=== PATIENT | male | born 1935 | race Caucasian/White ===

== ENCOUNTER 2018-11-08 13:47 | Emergency (ER) | payer MEDICARE, OTHER ==
--- NOTE | 2018-11-08 14:24 | ERPHSYRPT ---
- History of Present Illness Time Seen by Provider: 11/08/18 14:11 Source: patient, family Exam Limitations: other (patient with problems with his memory) Patient Subjective Stated Complaint: PT states "He fell walking from the mailbox to the house yesterday and he has trouble with his short term memory but it is really bad today. It is getting worse." Triage Nursing Assessment: Pt presented alert and oriented X 3, ski pwd. Pt has several skin tears and wounds on head, knees left elbow. PT repeating questions a couple of times. Physician History: 82-year-old white male with history of cataracts, congestive heart failure, anemia, high blood pressure, COPD who is on [place]. He is brought by his with complaint that the patient had an accidental fall yesterday landing on his face he has bruising to his left for head and left zygomatic area he has abrasions to bilateral knee and left elbow. Patient is oriented to person and place however he states it is year 1999 he is oriented to October. He has to look at his for answers to many questions and he is having many memory problems his states that he has chronic memory problems and this is markedly worse. He is moving all extremities he has no facial droop he has good planned giving officer bilaterally 5 over 5 normal finger to nose no pronator drift he can move all extremities. Past medical history includes cataracts, congestive heart failure, hyperlipidemia, high blood pressure, COPD. Past surgical history includes cardiac catheter, cardiac stent, cataracts. Social history patient denies tobacco alcohol or illicit drug use. Timing/Duration: yesterday Severity: moderate Modifying Factors: Improves With: nothing Associated Symptoms: other (Fell yesterday hit his head and face trouble with his memory slight neck pain), No nausea, No vomiting, No abdominal pain, No shortness of breath, No heartburn, No diaphoresis, No cough, No chills, No chest pain, No fever, No headaches, No loss of appetite, No malaise, No rash, No syncope, No seizure, No weakness Allergies/Adverse Reactions: rosuvastatin calcium [From Crestor] Allergy (Verified 02/10/15 21:55) Home Medications: Allopurinol 300 mg [Zyloprim 300 mg] 300 mg PO DAILY 11/08/18 [History] Amiodarone HCl 200 mg [Cordarone 200 MG] 200 mg PO DAILY 11/08/18 [History ] Apixaban [Eliquis] 5 mg PO DAILY 11/08/18 [History] Atorvastatin Calcium 40 mg PO DAILY 11/08/18 [History] Carvedilol 25 mg PO DAILY 11/08/18 [History] Furosemide 20 mg [Lasix 20 mg] 20 mg PO DAILY 11/08/18 [History] Levothyroxine Sodium [Synthroid] 75 mcg PO DAILY 11/08/18 [History] Sacubitril/Valsartan [Entresto 97 mg-103 mg Tablet] 1 tab PO DAILY 11/08/18 [ History] Spironolactone 25 mg PO DAILY 11/08/18 [History] Hx Tetanus, Diphtheria Vaccination/Date Given: Yes Hx Influenza Vaccination/Date Given: Yes Hx Pneumococcal Vaccination/Date Given: Yes Immunizations Up to Date: Yes - Review of Systems Constitutional: Other (Bruising left infraorbital area and for head fell yesterday), No Fever, No Chills Eyes: No Symptoms Ears, Nose, & Throat: No Symptoms Respiratory: No Cough, No Dyspnea Cardiac: No Chest Pain, No Edema, No Syncope Abdominal/Gastrointestinal: No Abdominal Pain, No Nausea, No Vomiting, No Diarrhea Genitourinary Symptoms: No Dysuria Musculoskeletal: Neck Pain (slight neck pain), Fall, Injury (bruising left for head and zygomatic area), No Arthralgias, No Back Pain, No Deformity Skin: No Rash Neurological: Other (problem with memory), No Dizziness, No Focal Weakness, No Gait Changes, No Headache, No Irritability, No Lethargy, No Paralysis, No Parasthesia, No Seizure, No Sensory Changes, No Speech Changes, No Tics, No Tremors, No Vertigo Psychological: No Symptoms Endocrine: No Symptoms All Other Systems: Reviewed and Negative - Past Medical History Pertinent Past Medical History: Yes Neurological History: No Pertinent History ENT History: Cataracts Cardiac History: Congestive Heart Failure, High Cholesterol, Hypertension Respiratory History: CHF, COPD Endocrine Medical History: Hypoglycemia Musculoskeletal History: Arthritis GI Medical History: No Pertinent History History: Renal Disease Psycho-Social History: No Pertinent History Male Reproductive Disorders: No Pertinent History - Past Surgical History Past Surgical History: Yes Cardiac: CABG, Cardiac Catheterization, Cardiac Stent Other Surgical History: cataracts - Social History Smoking Status: Former smoker Exposure to second hand smoke: No Drug Use: none Patient Lives Alone: No - Nursing Vital Signs Nursing Vital Signs: Initial Vital Signs Temperature 98.1 F 11/08/18 13:59 Pulse Rate 83 11/08/18 13:59 Respiratory Rate 16 11/08/18 13:59 Blood Pressure 134/71 11/08/18 13:59 O2 Sat by Pulse Oximetry 98 11/08/18 13:59 Pain Scale Pain Intensity 0 - Physical Exam General Appearance: alert, other (wwell-developed white male pleasant and cooperative to examination oriented to himself [facility] 2001, bruising left for head left zygomatic area) Eye Exam: PERRL/EOMI, eyes nml inspection Ears, Nose, Throat Exam: normal ENT inspection, TMs normal, pharynx normal, moist mucous membranes Neck Exam: normal inspection, non-tender, supple, full range of motion Respiratory Exam: normal breath sounds, lungs clear, No respiratory distress Cardiovascular Exam: regular rate/rhythm, normal heart sounds, normal peripheral pulses, capillary refill <2 sec Gastrointestinal/Abdomen Exam: soft, normal bowel sounds, No tenderness, No mass Back Exam: normal inspection, normal range of motion, No CVA tenderness, No vertebral tenderness Extremity Exam: normal range of motion, pelvis stable, other (aabrasions bilateral knees left elbow) Neurologic Exam: alert, cooperative, residential building inspector II-XII nml as tested, sensation nml, other (planned giving officer equal 5 over 5,normal finger to nose,no pronator drift, oriented to person and place speech normal no facial droop), No oriented x 3 (oriented to person, place, November of 1999), No motor deficits Skin Exam: other (bruising left fore head, left zygomatic area, abrasions bilateral knees left elbow) SpO2 Interpretation: normal (98%) SpO2: 98 - Course Nursing assessment & vital signs reviewed: Yes EKG Interpreted by Me: RATE (63 bpm), Other (EKG: Paced rhythm 63 beats per) - CT Exams Head CT Interpretation: Tele-radiologist Report (head CT: Impression 1. Intraventricular acute hemorrhage affecting the superior aspect of the third ventricle. 2. Age related chronic microvascular ischemic and involutional changes.) Cervical Spine CT Interpretation: Tele-radiologist Report (CT cervical spine, impression: 1. No acute evidence of acute fracture. 2. Extensive multievel ddegenerative changes. 3. Findings suspicious for about 1 cm in diameter left thyroid nodule. Further characterization with ultrasound is recommended. 4. Atherosclerotic disease of the aorta, carotids, and vertebral arteries.) Maxillofacial Bones CT Interpretation: Tele-radiologist Report (CT maxillofacial bones: impression 1. No acute bony aabnormalities 2. Hyperdense material, identified in the superior aspect of the third ventricle is compatible with intr which is better charactized with the dictated head CTperformed concurrently. Partially seen upper cervical spine degenerative changes.) Ordered Tests: Active Orders 24 hr Category Date Time Status EKG-ER Only STAT Care 11/08/18 14:18 Active IV Insertion STAT Care 11/08/18 14:17 Active CERVICAL SPINE WO CONTRAST [CT] Stat Exams 11/08/18 14:17 Taken FACIAL BONES WO CONTRAST [CT] Stat Exams 11/08/18 14:17 Taken HEAD WITHOUT CONTRAST [CT] Stat Exams 11/08/18 14:17 Taken CBC W DIFF Stat Lab 11/08/18 14:25 Completed CMP Stat Lab 11/08/18 14:25 Completed PROTIME WITH INR Stat Lab 11/08/18 14:25 Completed PTT Stat Lab 11/08/18 14:25 Completed TROPONIN Q3H Lab 11/08/18 14:25 Completed UA W/RFX UR CULTURE Stat Lab 11/08/18 15:35 Completed Lab/Rad Data: Laboratory Result Diagrams 11/08/18 14:25 11/08/18 14:25 Laboratory Results 11/08/18 11/08/18 11/08/18 Range/Units 15:35 14:25 14:25 WBC (4.0-10.5) K/mm3 RBC (4.1-5.6) M/mm3 Hgb (12.5-18.0) gm/dl Hct (42-50) % MCV (78-100) fl MCH (26-32) pg MCHC (32-36) g/dl RDW (11.5-14.0) % Plt Count (150-450) K/mm3 MPV (6-9.5) fl Gran % (36.0-66.0) % Eos # (Auto) (0-0.5) Absolute Lymphs (auto) (1.0-4.6) Absolute Monos (auto) (0.0-1.3) Lymphocytes % (24.0-44.0) % Monocytes % (0.0-12.0) % Eosinophils % (0.00-5.0) % Basophils % (0.0-0.4) % Absolute Granulocytes (1.4-6.9) Basophils # (0-0.4) PT 19.1 H (8.83-12.87) SECONDS INR 1.63 (0.8-3.0) APTT 31.5 (24.1-36.1) SECONDS Sodium (137-145) mmol/L Potassium (3.5-5.1) mmol/L Chloride (98-107) mmol/L Carbon Dioxide (22-30) mmol/L Anion Gap (5-15) MEQ/L BUN (9-20) mg/dL Creatinine (0.66-1.25) mg/dL Estimated GFR ML/MIN Glucose (74-106) mg/dL Calcium (8.4-10.2) mg/dL Total Bilirubin (0.2-1.3) mg/dL AST (17-59) U/L ALT (0-50) U/L Alkaline Phosphatase (38-126) U/L Troponin I 0.038 H* (0.000-0.034) ng/mL Serum Total Protein (6.3-8.2) g/dL Albumin (3.5-5.0) g/dL Urine Color YELLOW (YELLOW) Urine Appearance CLEAR (CLEAR) Urine pH 6.0 (5-6) Ur Specific [place]lin 1.010 (1.005-1.025) Urine Protein NEGATIVE (Negative) Urine Ketones NEGATIVE (NEGATIVE) Urine Blood NEGATIVE (0-5) Juan Luis/ul Urine Nitrite NEGATIVE (NEGATIVE) Urine Bilirubin NEGATIVE (NEGATIVE) Urine Urobilinogen NEGATIVE (0-1) mg/dL Ur Leukocyte Esterase NEGATIVE (NEGATIVE) Urine WBC (Auto) 0-2 (0-5) /HPF Urine RBC (Auto) NONE (0-2) /HPF U Epithel Cells (Auto) NONE (FEW) /HPF Urine Bacteria (Auto) NONE (NEGATIVE) /HPF Unidentified Crystals 2-5 (NEGATIVE) /HPF Urine Culture Reflexed NO (NO) Urine Glucose NEGATIVE (NEGATIVE) mg/dL 11/08/18 11/08/18 Range/Units 14:25 14:25 WBC 6.5 (4.0-10.5) K/mm3 RBC 3.41 L (4.1-5.6) M/mm3 Hgb 11.5 L (12.5-18.0) gm/dl Hct 34.9 L (42-50) % MCV 102.3 H (78-100) fl MCH 33.7 H (26-32) pg MCHC 33.0 (32-36) g/dl RDW 14.1 H (11.5-14.0) % Plt Count 164 (150-450) K/mm3 MPV 9.9 H (6-9.5) fl Gran % 74.2 H (36.0-66.0) % Eos # (Auto) 0.23 (0-0.5) Absolute Lymphs (auto) 0.75 L (1.0-4.6) Absolute Monos (auto) 0.66 (0.0-1.3) Lymphocytes % 11.5 L (24.0-44.0) % Monocytes % 10.2 (0.0-12.0) % Eosinophils % 3.5 (0.00-5.0) % Basophils % 0.6 (0.0-0.4) % Absolute Granulocytes 4.82 (1.4-6.9) Basophils # 0.04 (0-0.4) PT (8.83-12.87) SECONDS INR (0.8-3.0) APTT (24.1-36.1) SECONDS Sodium 137 (137-145) mmol/L Potassium 4.6 (3.5-5.1) mmol/L Chloride 104 (98-107) mmol/L Carbon Dioxide 24 (22-30) mmol/L Anion Gap 14.2 (5-15) MEQ/L BUN 38 H (9-20) mg/dL Creatinine 1.65 H (0.66-1.25) mg/dL Estimated GFR 42.5 ML/MIN Glucose 108 H (74-106) mg/dL Calcium 9.1 (8.4-10.2) mg/dL Total Bilirubin 0.90 (0.2-1.3) mg/dL AST 91 H (17-59) U/L ALT 95 H (0-50) U/L Alkaline Phosphatase 100 (38-126) U/L Troponin I (0.000-0.034) ng/mL Serum Total Protein 6.6 (6.3-8.2) g/dL Albumin 3.9 (3.5-5.0) g/dL Urine Color (YELLOW) Urine Appearance (CLEAR) Urine pH (5-6) Ur Specific [place] (1.005-1.025) Urine Protein (Negative) Urine Ketones (NEGATIVE) Urine Blood (0-5) Juan Luis/ul Urine Nitrite (NEGATIVE) Urine Bilirubin (NEGATIVE) Urine Urobilinogen (0-1) mg/dL Ur Leukocyte Esterase (NEGATIVE) Urine WBC (Auto) (0-5) /HPF Urine RBC (Auto) (0-2) /HPF U Epithel Cells (Auto) (FEW) /HPF Urine Bacteria (Auto) (NEGATIVE) /HPF Unidentified Crystals (NEGATIVE) /HPF Urine Culture Reflexed (NO) Urine Glucose (NEGATIVE) mg/dL - Progress Progress: unchanged Progress Note: 11/08/18 14:25 This is a 82-year-old white male who has some memory problems and has a history of cataracts, congestive heart failure, hyperlipidemia, COPD. Patient is brought by his with complaint that he fell yesterday striking his face while walking down the driveway. states that patient always has some memory problems however patient is much worse today. On arrival patient is alert he needs to look to his for answers to many questions. He is oriented to person place and the year 1999. He has full range of motion to all extremities he has normal finger to nose planned giving officer are equal 5 over 5 sensation is intact to all extremities speech is normal there is no pronator drift. He does state that he has some slight neck pain. He does have a moderate amount of ecchymoses in the left frontal area and the left zygomatic area. He also has abrasions to his bilateral knees and left elbow. Will go ahead and obtain CT head facial bones neck. Will obtain CBC CMP UA. EKG troponin. Impression 1 accidental fall. 2 head contusion. 3 facial contusion. 4. mental status change 11/08/18 16:[address] Paris at [facility] ER through [facility] one call serviv I've discussed the patient's case with Dr. Paris she is accepted the patient for transfer to [facility]. Patient had initially been started on normal saline at 100 mL per hour this has been turned down to just to keep open he is stable at this time and conversant and in no acute distress. Will transfer to [facility] Impression: 1. Intracranial bleed to accidental fall 3 head contusion 4 facial contusion 5 mental status change - Departure Departure Disposition: Transfer ([facility]) Clinical Impression: Intracranial bleed Accidental fall Qualifiers: Encounter type: initial encounter Qualified Code(s): W19.XXXA - Unspecified fall, initial encounter Head contusion Qualifiers: Encounter type: initial encounter Contusion of head detail: unspecified part of head Qualified Code(s): S00.93XA - Contusion of unspecified part of head, initial encounter Facial contusion Qualifiers: Encounter type: initial encounter Qualified Code(s): S00.83XA - Contusion of other part of head, initial encounter Change in mental status Qualifiers: Altered mental status type: unspecified Qualified Code(s): R41.82 - Altered mental status, unspecified Condition: Fair Critical Care Time: No Referrals: [facility] RN [Primary Care Provider] -
[2018-11-08 14:37] LABS: BASOPHIL % 0.6 % (0.0-0.4); Basophil (Absolute #) 0.04 (0-0.4); Eosinophil % 3.5 % (0.00-5.0); Eosinophil (Absolute #) 0.23 (0-0.5); Granulocyte Absolute (ANC) 4.82 (1.4-6.9); Granulocytes % 74.2 % (36.0-66.0); Hematocrit 34.9 % (42-50); Hemoglobin 11.5 gm/dl (12.5-18.0); Lymphocyte (Absolute #) 0.75 (1.0-4.6); Lymphocytes % 11.5 % (24.0-44.0); Mean Cell Volume 102.3 fl (78-100); Mean Corpuscular Hemoglobin 33.7 pg (26-32); Mean Platelet Volume 9.9 fl (6-9.5); Monocyte (Absolute #) 0.66 (0.0-1.3); Monocytes % 10.2 % (0.0-12.0); Platelet Count 164 K/mm3 (150-450); Red Blood Count 3.41 M/mm3 (4.1-5.6); Red Cell Distribution Width 14.1 % (11.5-14.0); White Blood Count 6.5 K/mm3 (4.0-10.5)
[2018-11-08 14:44] LABS: INR 1.63 (0.8-3.0); PROTIME 19.1 SECONDS (8.83-12.87)
[2018-11-08 14:46] LABS: PTT 31.5 SECONDS (24.1-36.1)
[2018-11-08 14:49] LABS: ALBUMIN 3.9 g/dL (3.5-5.0); ANION GAP 14.2 MEQ/L (5-15); BILIRUBIN,TOTAL 0.9 mg/dL (0.2-1.3); Calcium 9.1 mg/dL (8.4-10.2); Creatinine 1 1.65 mg/dL (0.66-1.25); Potassium 4.6 mmol/L (3.5-5.1); Total Protein 6.6 g/dL (6.3-8.2)
[2018-11-08 15:09] VITALS: PULSE 60
[2018-11-08 15:46] LABS: Appearance CLEAR (CLEAR); Bilirubin NEGATIVE (NEGATIVE); Blood NEGATIVE Ery/ul (0-5); Glucose NEGATIVE (NEGATIVE); Ketones NEGATIVE (NEGATIVE); Leukocyte Esterase NEGATIVE (NEGATIVE); Nitrite NEGATIVE (NEGATIVE); Protein,Urine Dip NEGATIVE (Negative); Urobilinogen NEGATIVE mg/dL (0-1); WBC 0-2 /HPF (0-5)
[2018-11-08 16:13] VITALS: O2SAT 98
[2018-11-08 16:19] VITALS: BP 145/77
--- NOTE | 2018-11-08 21:32 | XRAY ---
Indication: Head and facial injury following fall. Memory loss. Multiple contiguous axial images obtained through the facial bones. Sagittal and coronal reformatted images obtained. Comparison: None A few bilateral dental amalgams produces beam artifact. Age-related osteopenia. No acute fracture or suspicious bone lesions. Orbits including roof, escobedo, and floors are intact. Paranasal sinuses and nasal passages are clear. Mild nasal septal deviation to the left. Visualized noncontrasted soft tissues unremarkable. CT head and CT cervical spine reported separately. Impression: Osteopenia and nasal septal deviation. Negative acute fracture. Comment: Preliminary interpretation was made by [facility]. No critical discrepancy. CTDI 59.47
--- NOTE | 2018-11-08 21:35 | XRAY ---
Indication: Head and facial injury following fall. Memory loss. Multiple contiguous axial images obtained through the head without contrast. Comparison: None Age-appropriate global atrophy and mild periventricular degenerative micro-ischemia bilaterally. Posterior fossa demonstrates Dandy-Walker spectrum. 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 No acute intracranial hemorrhage, hydrocephalus, or mass effect. Bony calvarium intact. Visualized paranasal sinuses and mastoid air cells are clear. Impression: 1. No acute intracranial abnormalities. 2. Normal aging brain including atrophy and degenerative micro-ischemia. 3. 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 Comment: Preliminary interpretation was made by [facility] who reports 1.7 x 1.1 cm acute hemorrhage in the third ventricle which I believe is a dense colloid cyst. Dandy-Walker spectrum also not reported.
--- NOTE | 2018-11-08 21:39 | XRAY ---
Indication: Head and facial injury following fall. Memory loss. Multiple contiguous axial images obtained through the cervical spine. Sagittal and coronal reformatted images obtained. Comparison: None Age-related osteopenia. Axial images negative for acute fracture, suspicious bony lesions, or spinal canal stenosis. Mild/moderate multilevel degenerative endplate spurring and moderate atlantoaxial degenerative arthropathy. Also mild multilevel bilateral degenerative facet hypertrophy. Sagittal and coronal reformatted images demonstrates cervical lordotic reversal centered at C4. Also multilevel degenerative disc space loss. No acute compression fracture, subluxation, or jumped facet. Normal appearing craniocervical junction. Visualized noncontrasted soft tissues demonstrates scattered vascular calcifications including heavy left and minimal right carotid calcifications. A few right neck surgical clips presumed from carotid endarterectomy and partially visualized right pacer lead. Lung apices unremarkable. CT head and CT facial bones reported separately. Impression: 1. Cervical lordotic reversal, positional versus paraspinal spasm. Negative acute fracture/subluxation. 2. Multilevel degenerative changes and scattered vascular calcifications. Comment: Preliminary interpretation was made by [facility]. No critical discrepancy. CTDI 58.25
== END 2018-11-08 16:44 | disposition short-term general hospital (02) ==
LOC: ED 13:47
DX: S00.93XA Contusion of unspecified part of head, initial encounter (principal); S00.83XA Contusion of other part of head, initial encounter; R41.82 Altered mental status, unspecified; W18.39XA Other fall on same level, initial encounter; I50.9 Heart failure, unspecified; D64.9 Anemia, unspecified; I10 Essential (primary) hypertension; J44.9 Chronic obstructive pulmonary disease, unspecified; Z79.899 Other long term (current) drug therapy; S80.212A Abrasion, left knee, initial encounter; S80.211A Abrasion, right knee, initial encounter; S50.312A Abrasion of left elbow, initial encounter
CPT/HCPCS: 36000; 36415; 70450; 70486; 72125; 80053; 81001; 84484; 85025; 85610; 85730; 93005; 99285

== ENCOUNTER 2020-06-25 12:05 | Emergency (ER) | payer MEDICARE, OTHER ==
[2020-06-25] MEDS ORDERED: Sodium Chloride 0.9% 1000 ML 1,000 ML IV STA (12:22)
[2020-06-25] MEDS ORDERED: Sodium Chloride 0.9% 1000 ML 1,000 ML ONE (12:35)
--- NOTE | 2020-06-25 12:40 | ERPHSYRPT ---
- History of Present Illness Time Seen by Provider: 06/25/20 12:30 Historian: patient, family Exam Limitations: other (Hard of hearing) Patient Subjective Stated Complaint: lower abd pain and hematuria Triage Nursing Assessment: pt to ED c.o lower abd pain x 4 days. denies NVD. last BM today that was normal per pt . pt COWLITZ and somewhat poor historian. last PO was breakfast this morning with no difficulties. pts reports he has had some blood in his urine x 4 days as well. denies hx kidney stones or renal disease. Physician History: -year-old male who presents with a 4-day history of generalized abdominal pain and hematuria. The pain is worse in the suprapubic area started 4 days ago denies any nausea vomiting or diarrhea he denies any fever chills or sweats. Timing/Duration: day(s) (4) Activities at Onset: none Quality: cramping Abdominal Pain Onset Location: suprapubic, generalized abdomen Pain Radiation: LLQ, flank Severity of Pain-Max: moderate Severity of Pain-Current: moderate Modifying Factors: Improves With: nothing Allergies/Adverse Reactions: rosuvastatin calcium [From Crestor] Allergy (Verified 06/25/20 12:32) legs weak, couldn't ambulate Home Medications: Allopurinol 300 mg [Zyloprim 300 mg] 150 mg PO DAILY 11/08/18 [History] Apixaban [Eliquis] 5 mg PO DAILY 11/08/18 [History] Atorvastatin Calcium 40 mg PO DAILY 11/08/18 [History] Furosemide 20 mg [Lasix 20 mg] 20 mg PO DAILY 11/08/18 [History] Levothyroxine Sodium [Synthroid] 75 mcg PO DAILY 11/08/18 [History] Sacubitril/Valsartan [Entresto 97 mg-103 mg Tablet] 1 tab PO BID 11/08/18 [History] Spironolactone 25 mg PO DAILY 11/08/18 [History] carvediloL [Carvedilol] 25 mg PO DAILY 11/08/18 [History] Fluticasone Propionate [Flonase NASAL] 16 gm NS UD 01/04/20 [History] Folic Acid 1 mg [Folate 1 mg] 1 mg PO DAILY 01/04/20 [History] Iron 65 mg PO DAILY 01/04/20 [History] Magnesium Oxide 400 mg [Mag-Ox 400] 400 mg PO DAILY 01/04/20 [History] Multivitamin [Multivitamins] 1 each PO DAILY 01/04/20 [History] Nitroglycerin 0.4 mg SL UD 01/04/20 [History] Vit A/C/E/Zinc/Selenium/Copper [Vision Formula Tablet] 1 each PO DAILY 01/04/20 [History] Hx Tetanus, Diphtheria Vaccination/Date Given: Yes Hx Influenza Vaccination/Date Given: Yes Hx Pneumococcal Vaccination/Date Given: Yes Immunizations Up to Date: Yes Travel Risk - International Travel Have you traveled outside of the country in past 3 weeks: No - Coronavirus Screening Are you exhibiting any of the following symptoms?: No Close contact with a COVID-19 positive Pt in past 14-21 Days: No - Review of Systems Constitutional: No Fever, No Chills Eyes: No Symptoms Ears, Nose, & Throat: No Symptoms Respiratory: No Cough, No Dyspnea Cardiac: No Chest Pain, No Edema, No Syncope Abdominal/Gastrointestinal: No Abdominal Pain, No Nausea, No Vomiting, No Diarrhea Genitourinary Symptoms: Dysuria, Frequency, Hematuria, Urgency Musculoskeletal: No Back Pain, No Neck Pain Skin: No Rash Neurological: No Dizziness, No Focal Weakness, No Sensory Changes Psychological: No Symptoms Endocrine: No Symptoms All Other Systems: Reviewed and Negative - Past Medical History Pertinent Past Medical History: Yes Neurological History: No Pertinent History ENT History: Cataracts Cardiac History: Congestive Heart Failure, High Cholesterol, Hypertension Respiratory History: CHF, COPD Endocrine Medical History: Hypoglycemia Musculoskeletal History: Arthritis GI Medical History: No Pertinent History History: Renal Disease Psycho-Social History: No Pertinent History Male Reproductive Disorders: No Pertinent History - Past Surgical History Past Surgical History: Yes Neuro Surgical History: No Pertinent History Cardiac: CABG, Cardiac Catheterization, Cardiac Stent Respiratory: No Pertinent History Gastrointestinal: Hernia Repair Genitourinary: No Pertinent History Musculoskeletal: No Pertinent History Male Surgical History: No Pertinent History Other Surgical History: cataracts,QUAD BIPASS, hernior. x three - Social History Smoking Status: Former smoker Exposure to second hand smoke: No Drug Use: none Patient Lives Alone: No - Nursing Vital Signs Nursing Vital Signs: Initial Vital Signs Temperature 97.6 F 06/25/20 12:23 Pulse Rate 62 06/25/20 12:23 Respiratory Rate 12 06/25/20 12:23 Blood Pressure 150/71 06/25/20 12:23 O2 Sat by Pulse Oximetry 96 06/25/20 12:23 Pain Scale Pain Intensity 4 - Physical Exam General Appearance: mild distress, alert Eye Exam: PERRL/EOMI, eyes nml inspection Ears, Nose, Throat Exam: normal ENT inspection, pharynx normal, moist mucous membranes Neck Exam: normal inspection, non-tender, supple, full range of motion Respiratory Exam: normal breath sounds, lungs clear, No respiratory distress Cardiovascular Exam: regular rate/rhythm, normal heart sounds Gastrointestinal/Abdomen Exam: soft, No tenderness, No mass Back Exam: normal inspection, normal range of motion, No CVA tenderness, No vertebral tenderness Extremity Exam: normal inspection, normal range of motion, pelvis stable Neurologic Exam: alert, oriented x 3, cooperative, normal mood/affect, nml cerebellar function, sensation nml, No motor deficits Skin Exam: normal color, warm, dry SpO2 Interpretation: normal SpO2: 96 O2 Delivery: Room Air - Course Nursing assessment & vital signs reviewed: Yes EKG Interpreted by Me: RATE (6 1 junctional rhthym), NORMAL AXIS, LAFB, Right Bundle Branch Block - CT Exams Abdomen/Pelvis CT Interpretation: Tele-radiologist Report Ordered Tests: Active Orders 24 hr Category Date Time Status EKG-ER Only STAT Care 06/25/20 12:22 Active IV Insertion STAT Care 06/25/20 12:22 Active ABDOMEN AND PELVIS W/0 CONTRAS [CT] Routine Exams 06/25/20 14:23 Taken AMYLASE Stat Lab 06/25/20 12:30 Completed CBC W DIFF Stat Lab 06/25/20 12:30 Completed CMP Stat Lab 06/25/20 12:30 Completed CULTURE,URINE Stat Lab 06/25/20 12:44 Received LIPASE Stat Lab 06/25/20 12:30 Completed Lactic Acid Stat Lab 06/25/20 12:22 Completed PROTIME WITH INR Stat Lab 06/25/20 12:30 Completed TROPONIN Q3H Lab 06/25/20 12:30 Completed TROPONIN Q3H Lab 06/25/20 15:25 Received TROPONIN Q3H Lab 06/25/20 18:30 Ordered TROPONIN Q3H Lab 06/25/20 21:30 Ordered TROPONIN Q3H Lab 06/26/20 00:30 Ordered UA W/RFX UR CULTURE Stat Lab 06/25/20 12:44 Completed Medication Summary Discontinued Medications Generic Name Dose Route Start Last Admin Trade Name Brent PRN Reason Stop Dose Admin Sodium Chloride 1,000 mls @ 999 mls/hr 06/25/20 12:22 06/25/20 13:45 Sodium Chloride 0.9% 1000 Ml IV 06/25/20 13:22 Infused .Q1H1M STA Infusion Sodium Chloride Confirm 06/25/20 12:35 Sodium Chloride 0.9% 1000 Ml Administered 06/25/20 12:36 Dose 1,000 mls @ ud .ROUTE .STK-MED ONE Ceftriaxone Sodium/Dextrose 1 g in 50 mls @ 100 mls/hr 06/25/20 14:57 06/25/20 15:07 Rocephin 1 Gm-D5w 50 Ml Bag IV 06/25/20 15:26 100 ml/hr STAT STA 100 mls/hr Administration Ceftriaxone Sodium/Dextrose Confirm 06/25/20 15:05 Rocephin 1 Gm-D5w 50 Ml Bag Administered 06/25/20 15:06 Dose 1 g in 50 mls @ ud IV .STK-MED ONE Lab/Rad Data: Laboratory Result Diagrams 06/25/20 12:30 06/25/20 12:30 Laboratory Results 06/25/20 06/25/20 06/25/20 Range/Units 12:44 12:30 12:30 WBC (4.0-10.5) K/mm3 RBC (4.1-5.6) M/mm3 Hgb (12.5-18.0) gm/dl Hct (42-50) % MCV (78-100) fl MCH (26-32) pg MCHC (32-36) g/dl RDW (11.5-14.0) % Plt Count (150-450) K/mm3 MPV (7.5-11.0) fl Gran % (36.0-66.0) % Eos # (Auto) (0-0.5) Absolute Lymphs (auto) (1.0-4.6) Absolute Monos (auto) (0.0-1.3) Lymphocytes % (24.0-44.0) % Monocytes % (0.0-12.0) % Eosinophils % (0.00-5.0) % Basophils % (0.0-0.4) % Absolute Granulocytes (1.4-6.9) Basophils # (0-0.4) PT 20.6 H (8.83-12.87) SECONDS INR 1.81 (0.8-3.0) Sodium (137-145) mmol/L Potassium (3.5-5.1) mmol/L Chloride (98-107) mmol/L Carbon Dioxide (22-30) mmol/L Anion Gap (5-15) MEQ/L BUN (9-20) mg/dL Creatinine (0.66-1.25) mg/dL Estimated GFR ML/MIN Glucose (74-106) mg/dL Lactic Acid (0.4-2.0) Calcium (8.4-10.2) mg/dL Total Bilirubin (0.2-1.3) mg/dL AST (17-59) U/L ALT (0-50) U/L Alkaline Phosphatase (38-126) U/L Troponin I 0.033 (0.000-0.034) ng/mL Serum Total Protein (6.3-8.2) g/dL Albumin (3.5-5.0) g/dL Amylase (30-110) U/L Lipase (23-300) U/L Urine Color RED (YELLOW) Urine Appearance CLOUDY (CLEAR) Urine pH 6.0 (5-6) Ur Specific [place] 1.021 (1.005-1.025) Urine Protein 100 (Negative) Urine Ketones TRACE (NEGATIVE) Urine Blood LARGE (0-5) Juan Luis/ul Urine Nitrite NEGATIVE (NEGATIVE) Urine Bilirubin NEGATIVE (NEGATIVE) Urine Urobilinogen 2 (0-1) mg/dL Ur Leukocyte Esterase TRACE (NEGATIVE) Urine WBC (Auto) >100 (0-5) /HPF Urine RBC (Auto) >101 (0-2) /HPF U Epithel Cells (Auto) NONE (FEW) /HPF Urine Bacteria (Auto) MANY (NEGATIVE) /HPF Urine Culture Reflexed YES (NO) Urine Glucose NEGATIVE (NEGATIVE) mg/dL 06/25/20 06/25/20 06/25/20 Range/Units 12:30 12:30 12:22 WBC 6.4 (4.0-10.5) K/mm3 RBC 3.70 L (4.1-5.6) M/mm3 Hgb 11.8 L (12.5-18.0) gm/dl Hct 36.9 L (42-50) % MCV 99.7 (78-100) fl MCH 31.9 (26-32) pg MCHC 32.0 (32-36) g/dl RDW 14.0 (11.5-14.0) % Plt Count 169 (150-450) K/mm3 MPV 10.3 (7.5-11.0) fl Gran % 76.6 H (36.0-66.0) % Eos # (Auto) 0.26 (0-0.5) Absolute Lymphs (auto) 0.76 L (1.0-4.6) Absolute Monos (auto) 0.43 (0.0-1.3) Lymphocytes % 12.0 L (24.0-44.0) % Monocytes % 6.8 (0.0-12.0) % Eosinophils % 4.1 (0.00-5.0) % Basophils % 0.5 (0.0-0.4) % Absolute Granulocytes 4.87 (1.4-6.9) Basophils # 0.03 (0-0.4) PT (8.83-12.87) SECONDS INR (0.8-3.0) Sodium 138 (137-145) mmol/L Potassium 4.2 (3.5-5.1) mmol/L Chloride 105 (98-107) mmol/L Carbon Dioxide 30 (22-30) mmol/L Anion Gap 8.1 (5-15) MEQ/L BUN 23 H (9-20) mg/dL Creatinine 0.96 (0.66-1.25) mg/dL Estimated GFR > 60.0 ML/MIN Glucose 101 (74-106) mg/dL Lactic Acid 1.2 (0.4-2.0) Calcium 9.1 (8.4-10.2) mg/dL Total Bilirubin 0.80 (0.2-1.3) mg/dL AST 30 (17-59) U/L ALT 14 (0-50) U/L Alkaline Phosphatase 58 (38-126) U/L Troponin I (0.000-0.034) ng/mL Serum Total Protein 6.0 L (6.3-8.2) g/dL Albumin 3.5 (3.5-5.0) g/dL Amylase 59 (30-110) U/L Lipase 126 (23-300) U/L Urine Color (YELLOW) Urine Appearance (CLEAR) Urine pH (5-6) Ur Specific [place] (1.005-1.025) Urine Protein (Negative) Urine Ketones (NEGATIVE) Urine Blood (0-5) Juan Luis/ul Urine Nitrite (NEGATIVE) Urine Bilirubin (NEGATIVE) Urine Urobilinogen (0-1) mg/dL Ur Leukocyte Esterase (NEGATIVE) Urine WBC (Auto) (0-5) /HPF Urine RBC (Auto) (0-2) /HPF U Epithel Cells (Auto) (FEW) /HPF Urine Bacteria (Auto) (NEGATIVE) /HPF Urine Culture Reflexed (NO) Urine Glucose (NEGATIVE) mg/dL - Progress Progress: improved - Departure Departure Disposition: Home Clinical Impression: UTI (urinary tract infection) Condition: Stable Critical Care Time: No Referrals: JESSIE ROBBINS DO [Primary Care Provider] - Instructions: Urinary Tract Infections in Adults Prescriptions: Cephalexin Mh 500 mg [Keflex 500 mg] 500 mg PO TID #21 capsule
[2020-06-25 12:48] LABS: Absolute Neutrophil Ct (ANC) 4.87 (1.4-6.9); BASOPHIL % 0.5 % (0.0-0.4); Basophil (Absolute #) 0.03 (0-0.4); Eosinophil % 4.1 % (0.00-5.0); Eosinophil (Absolute #) 0.26 (0-0.5); Hematocrit 36.9 % (42-50); Hemoglobin 11.8 gm/dl (12.5-18.0); Lymphocyte (Absolute #) 0.76 (1.0-4.6); Mean Cell Volume 99.7 fl (78-100); Mean Corpuscular Hemoglobin 31.9 pg (26-32); Mean Platelet Volume 10.3 fl (7.5-11.0); Monocyte (Absolute #) 0.43 (0.0-1.3); Monocytes % 6.8 % (0.0-12.0); Neutrophil % 76.6 % (36.0-66.0); Platelet Count 169 K/mm3 (150-450); White Blood Count 6.4 K/mm3 (4.0-10.5)
[2020-06-25 12:57] LABS: INR 1.81 (0.8-3.0); PROTIME 20.6 SECONDS (8.83-12.87)
[2020-06-25 13:02] LABS: ALBUMIN 3.5 g/dL (3.5-5.0); ALKALINE PHOSPHATASE 58 U/L (38-126); AMYLASE 59 U/L (30-110); ANION GAP 8.1 MEQ/L (5-15); BLOOD UREA NITROGEN 23 mg/dL (9-20); CHLORIDE 105 mmol/L (98-107); Calcium 9.1 mg/dL (8.4-10.2); Carbon Dioxide 30 mmol/L (22-30); Creatinine 1 0.96 mg/dL (0.66-1.25); EST GLOMERULAR FILTRATION RATE > 60.0 ML/MIN; Glucose 101 mg/dL (74-106); LIPASE 126 U/L (23-300); Potassium 4.2 mmol/L (3.5-5.1); SGOT/AST 30 U/L (17-59); SGPT/ALT 14 U/L (0-50); SODIUM 138 mmol/L (137-145)
[2020-06-25 13:08] LABS: Appearance CLOUDY (CLEAR); Bacteria MANY /HPF (NEGATIVE); Bilirubin NEGATIVE (NEGATIVE); Blood LARGE Ery/ul (0-5); Glucose NEGATIVE (NEGATIVE); Ketones TRACE (NEGATIVE); Leukocyte Esterase TRACE (NEGATIVE); Nitrite NEGATIVE (NEGATIVE); Protein,Urine Dip 100 (Negative); Specific Gravity 1.021 (1.005-1.025); Urobilinogen 2 mg/dL (0-1); WBC >100 /HPF (0-5)
[2020-06-25 13:09] LABS: RBC >101 /HPF (0-2)
[2020-06-25] MEDS ORDERED: ROCEPHIN 1 Gm-D5w 50 ml Bag** 1 G/50 ML IVPB IV STA (14:57)
[2020-06-25] MEDS ORDERED: ROCEPHIN 1 Gm-D5w 50 ml Bag** 1 G/50 ML IVPB IV ONE (15:05)
[2020-06-25 15:43] VITALS: BP 168/75; PULSE 62
[2020-06-25 15:50] VITALS: O2SAT 96
--- NOTE | 2020-06-25 19:15 | XRAY ---
Indication: Hematuria. Multiple contiguous axial images obtained through the abdomen and pelvis without contrast as ordered. Comparison: January 05, 2020. Lung bases demonstrates minimal bibasilar dependent atelectasis. No infiltrate or effusion. Heart is no enlarged. Stable moderate-sized hiatal hernia with partial intrathoracic stomach. Noncontrasted stomach and bowel loops remain nonobstructed. Stable sigmoid diverticulosis, multiple tiny gallstones, hepatic/splenic calcified granulomas, bilateral renal cysts, and enlarged prostate gland. No free fluid/air. Remaining liver, gallbladder, pancreas, spleen, adrenal glands, kidneys, ureters, and bladder are unremarkable for noncontrast exam. There remains extensive scattered vascular calcifications with 3.0 cm distal AAA. Osseous structures intact again with osteopenia and mild/moderate multilevel degenerative spondylosis. Stable intact left inguinal and right lower quadrant ventral hernia mesh grafts. Impression: 1. Stable hiatal hernia with partial intrathoracic stomach, sigmoid diverticulosis, cholelithiasis, bilateral renal cysts, enlarged prostate gland, extensive arteriosclerotic calcifications with 3 cm distal AAA, chronic bony findings, and old granulomatous disease. 2. New cardiomegaly. 3. Remaining CT abdomen/pelvis without contrast exam is negative. Comment: Preliminary interpretation was made by C. No critical discrepancy.
== END 2020-06-25 15:59 | disposition home or self-care (01) ==
LOC: ED 12:05
DX: N39.0 Urinary tract infection, site not specified (principal); R31.9 Hematuria, unspecified; R10.32 Left lower quadrant pain; Z79.899 Other long term (current) drug therapy; I50.9 Heart failure, unspecified; E78.00 Pure hypercholesterolemia, unspecified; I10 Essential (primary) hypertension; J44.9 Chronic obstructive pulmonary disease, unspecified
CPT/HCPCS: 36000; 36415; 74176; 80053; 81001; 82150; 83605; 83690; 84484; 85025; 85610; 87086; 93005; 96360; 96365; 99284; J0696

== ENCOUNTER 2021-12-25 11:33 | Emergency (ER) | payer MEDICARE, OTHER ==
--- NOTE | 2021-12-25 12:17 | ERPHSYRPT ---
- History of Present Illness Time Seen by Provider: 12/25/21 12:00 Source: patient Exam Limitations: no limitations Patient Subjective Stated Complaint: Pt c/o of noah lower quadrant pain and testicular pain and swelling Triage Nursing Assessment: Pt brought to the ER by his daughter, hypertensive, rates pain as 9/10, states that he hasn't been urinating very much but he did go a lot this morning, edema to noah lower extremeties, pulses normal, skin n/w/d, pain with palpatation to the lower abdomen Physician History: Patient is an 86-year-old male presents to emergency department for evaluation of lower abdominal pain and testicular pain. Symptoms started yesterday evening. Pain was rated 9 out of 10. Pain symptoms states the pain has significantly improved and currently being denies pain medication. Patient states he has a history of prostate problems but is not sure exactly what the prostate issue is. No trauma. No fever. Patient had normal urine output volume this morning. No back pain. Symptoms are mild to moderate in intensity. No specific worsening improving factors. Patient voices no other complaints or concerns at this time. Timing/Duration: yesterday Severity: moderate Modifying Factors: Improves With: other Associated Symptoms: denies symptoms, No chills, No chest pain, No fever, No loss of appetite, No syncope, No seizure, No weakness Allergies/Adverse Reactions: rosuvastatin calcium [From Crestor] Allergy (Verified 12/25/21 12:09) legs weak, couldn't ambulate Home Medications: Apixaban [Eliquis] 5 mg PO BID 11/08/18 [History] Atorvastatin Calcium 20 mg PO DAILY 11/08/18 [History] Furosemide 20 mg [Lasix 20 mg] 20 mg PO DAILY 11/08/18 [History] Levothyroxine Sodium [Synthroid] 75 mcg PO DAILY 11/08/18 [History] Sacubitril/Valsartan [Entresto 97 mg-103 mg Tablet] 1 tab PO BID 11/08/18 [History] carvediloL [Carvedilol] 25 mg PO BID 11/08/18 [History] Fluticasone Propionate [Flonase NASAL] 16 gm NS UD 01/04/20 [History] Folic Acid 1 mg [Folate 1 mg] 1 mg PO DAILY 01/04/20 [History] Iron 65 mg PO DAILY 01/04/20 [History] Magnesium Oxide 400 mg [Mag-Ox 400] 400 mg PO BID 01/04/20 [History] Multivitamin [Multivitamins] 1 each PO DAILY 01/04/20 [History] Nitroglycerin 0.4 mg SL UD 01/04/20 [History] allopurinoL [Allopurinol] 150 mg PO DAILY 12/25/21 [History] Hx Tetanus, Diphtheria Vaccination/Date Given: Yes Hx Influenza Vaccination/Date Given: Yes Hx Pneumococcal Vaccination/Date Given: Yes Travel Risk - International Travel Have you traveled outside of the country in past 3 weeks: No - Coronavirus Screening Are you exhibiting any of the following symptoms?: No - Vaccine Status Have you recieved a Covid-19 vaccination: No - Review of Systems Constitutional: No Symptoms, No Fever, No Chills Eyes: No Symptoms Ears, Nose, & Throat: No Symptoms Respiratory: No Symptoms, No Cough, No Dyspnea Cardiac: No Symptoms, No Chest Pain, No Edema, No Syncope Abdominal/Gastrointestinal: No Symptoms, No Abdominal Pain, No Nausea, No Vomiting, No Diarrhea Genitourinary Symptoms: No Symptoms, No Dysuria Musculoskeletal: No Symptoms, No Back Pain, No Neck Pain Skin: No Symptoms, No Rash Neurological: No Symptoms, No Dizziness, No Focal Weakness, No Sensory Changes Psychological: No Symptoms Endocrine: No Symptoms Hematologic/Lymphatic: No Symptoms Immunological/Allergic: No Symptoms All Other Systems: Reviewed and Negative - Past Medical History Pertinent Past Medical History: Yes Neurological History: No Pertinent History ENT History: Cataracts Cardiac History: Congestive Heart Failure, High Cholesterol, Hypertension Respiratory History: CHF, COPD Endocrine Medical History: Hypoglycemia Musculoskeletal History: Arthritis GI Medical History: No Pertinent History History: Renal Disease Psycho-Social History: No Pertinent History Male Reproductive Disorders: No Pertinent History - Past Surgical History Past Surgical History: Yes Neuro Surgical History: No Pertinent History Cardiac: CABG, Cardiac Catheterization, Cardiac Stent Respiratory: No Pertinent History Gastrointestinal: Hernia Repair Genitourinary: No Pertinent History Musculoskeletal: No Pertinent History Male Surgical History: No Pertinent History Other Surgical History: cataracts,QUAD BIPASS, hernior. x three - Social History Smoking Status: Former smoker Exposure to second hand smoke: No Drug Use: none Patient Lives Alone: No - Nursing Vital Signs Nursing Vital Signs: Initial Vital Signs Temperature 97.9 F 12/25/21 11:57 Pulse Rate 82 12/25/21 11:57 Blood Pressure 177/88 12/25/21 11:57 O2 Sat by Pulse Oximetry 95 12/25/21 11:57 Pain Scale Pain Intensity 9 - Physical Exam General Appearance: no apparent distress, alert Eye Exam: PERRL/EOMI, eyes nml inspection Ears, Nose, Throat Exam: normal ENT inspection, TMs normal, pharynx normal, moist mucous membranes Neck Exam: normal inspection, non-tender, supple, full range of motion Respiratory Exam: normal breath sounds, lungs clear, No respiratory distress Cardiovascular Exam: regular rate/rhythm, normal heart sounds, normal peripheral pulses Gastrointestinal/Abdomen Exam: soft, normal bowel sounds, other (Mild bilateral lower quadrant abdominal pain. Mild tenderness to this location. Overlying soft tissue intact. No signs of trauma.), No tenderness, No mass Male Genitalia Exam: other (Normal genitalia exam. No testicular swelling. Mild bilateral testicular tenderness. No obvious masses.), No testicular mass, No penile discharge Back Exam: normal inspection, normal range of motion, No CVA tenderness, No vertebral tenderness Extremity Exam: normal inspection, normal range of motion, pelvis stable, pedal edema (Bilateral lower extremity pitting edema 2+) Neurologic Exam: alert, oriented x 3, cooperative, normal mood/affect, nml cerebellar function, sensation nml, No motor deficits Skin Exam: normal color, warm, dry, No rash Lymphatic Exam: No adenopathy SpO2 Interpretation: normal SpO2: 95 O2 Delivery: Room Air - Course Nursing assessment & vital signs reviewed: Yes - CT Exams Abdomen/Pelvis CT Interpretation: Tele-radiologist Report (Cardiomegaly, by basilar pleural effusion, rule out CHF/fluid overload, retrocardiac hiatal hernia, atherosclerotic vascular calcifications, 3 cm AAA unchanged, hepatic granuloma, cholelithiasis, renal cyst, nephrolithiasis, right renal mass left diverticulosis, enlarged prostate, spine arthritis) - Radiology Ultrasound Exam Scrotal Ultrasound: tele radiology report (Per janitor cleaner no torsion. Left varicocele bilateral hydroceles with cysts.) Ordered Tests: Active Orders 24 hr Category Date Time Status ABDOMEN AND PELVIS W/0 CONTRAS [CT] Stat Exams 12/25/21 12:07 Completed CHEST 1 VIEW (PORTABLE) Stat Exams 12/25/21 14:27 Completed TESTICLE [US] Stat Exams 12/25/21 12:56 Completed BNP [NT PRO BNP] Stat Lab 12/25/21 14:35 Completed CBC W DIFF Stat Lab 12/25/21 12:06 Completed CMP Stat Lab 12/25/21 12:06 Completed UA W/RFX CULTURE Stat Lab 12/25/21 15:06 Completed Medication Summary Discontinued Medications Generic Name Dose Route Start Last Admin Trade Name Brent PRN Reason Stop Dose Admin Furosemide 40 mg 12/25/21 15:42 12/25/21 18:06 Furosemide 40 Mg/4 Ml Vial IV 12/25/21 15:43 40 mg STAT ONE Administration Furosemide Confirm 12/25/21 18:05 Furosemide 40 Mg/4 Ml Vial Administered 12/25/21 18:06 Dose 40 mg .ROUTE .STK-MED ONE Lab/Rad Data: Laboratory Result Diagrams 12/25/21 12:06 12/25/21 12:06 Laboratory Results 12/25/21 12/25/21 12/25/21 Range/Units 15:06 14:35 14:35 WBC (4.0-10.5) x10^3/uL RBC (4.1-5.6) x10^6/uL Hgb (12.5-18.0) g/dL Hct (42-50) % MCV (78-100) fL MCH (26-32) pg MCHC (32-36) g/dL RDW (11.5-14.0) % Plt Count (150-450) x10^3/uL MPV (7.5-11.0) fL Gran % (36.0-66.0) % Immature Gran % (Auto) (0.00-0.4) % Nucleat RBC Rel Count (0.00-0.1) % Eos # (Auto) (0-0.5) x10^3/uL Immature Gran # (Auto) (0.00-0.03) x10^3u/L Absolute Lymphs (auto) (1.0-4.6) x10^3/uL Absolute Monos (auto) (0.0-1.3) x10^3/uL Absolute Nucleated RBC (0.00-0.01) x10^3u/L Lymphocytes % (24.0-44.0) % Monocytes % (0.0-12.0) % Eosinophils % (0.00-5.0) % Basophils % (0.0-0.4) % Absolute Granulocytes (1.4-6.9) x10^3/uL Basophils # (0-0.4) x10^3/uL Sodium (137-145) mmol/L Potassium (3.5-5.1) mmol/L Chloride (98-107) mmol/L Carbon Dioxide (22-30) mmol/L Anion Gap (5-15) MEQ/L BUN (9-20) mg/dL Creatinine (0.66-1.25) mg/dL Estimated GFR ML/MIN Glucose (74-106) mg/dL Calcium (8.4-10.2) mg/dL Total Bilirubin (0.2-1.3) mg/dL AST (17-59) U/L ALT (0-50) U/L Alkaline Phosphatase (38-126) U/L NT-Pro-B Natriuret Pep 40319 H (0-1800) pg/mL Serum Total Protein (6.3-8.2) g/dL Albumin (3.5-5.0) g/dL Urinalys Dipstick Clnc MAIN LAB Urine Color YELLOW (YELLOW) Urine Appearance CLEAR (CLEAR) Urine pH 7.0 (5-6) Ur Specific [place] 1.015 (1.005-1.025) POC Urine Protein Conf TRACE (Negative) Urine Ketones NEGATIVE (NEGATIVE) Urine Nitrite NEGATIVE (NEGATIVE) Urine Bilirubin NEGATIVE (NEGATIVE) Urine Urobilinogen 0.2 (0-1) mg/dL Urine Leukocytes NEGATIVE (NEGATIVE) Urine WBC (Auto) NONE (0-5) /HPF Urine RBC (Auto) 3-5 (0-2) /HPF U Epithel Cells (Auto) OCCASIONAL (FEW) /HPF Urine Bacteria (Auto) NONE (NEGATIVE) /HPF Urine RBC MODERATE NON-HEM (0-5) Juan Luis/ul Ur Culture Indicated? NO Urine Glucose NEGATIVE (NEGATIVE) mg/dL Influenza Type A Ag NEGATIVE (NEGATIVE) Influenza Type B Ag NEGATIVE (NEGATIVE) RSV (PCR) NEGATIVE (Negative) SARS-CoV-2 (PCR) NEGATIVE (NEGATIVE) 12/25/21 12/25/21 Range/Units 12:06 12:06 WBC 7.7 (4.0-10.5) x10^3/uL RBC 3.56 L (4.1-5.6) x10^6/uL Hgb 11.8 L (12.5-18.0) g/dL Hct 35.8 L (42-50) % MCV 100.6 H (78-100) fL MCH 33.1 H (26-32) pg MCHC 33.0 (32-36) g/dL RDW 13.5 (11.5-14.0) % Plt Count 159 (150-450) x10^3/uL MPV 10.0 (7.5-11.0) fL Gran % 81.3 H (36.0-66.0) % Immature Gran % (Auto) 0.3 (0.00-0.4) % Nucleat RBC Rel Count 0.0 (0.00-0.1) % Eos # (Auto) 0.24 (0-0.5) x10^3/uL Immature Gran # (Auto) 0.02 (0.00-0.03) x10^3u/L Absolute Lymphs (auto) 0.62 L (1.0-4.6) x10^3/uL Absolute Monos (auto) 0.49 (0.0-1.3) x10^3/uL Absolute Nucleated RBC 0.00 (0.00-0.01) x10^3u/L Lymphocytes % 8.1 L (24.0-44.0) % Monocytes % 6.4 (0.0-12.0) % Eosinophils % 3.1 (0.00-5.0) % Basophils % 0.8 (0.0-0.4) % Absolute Granulocytes 6.23 (1.4-6.9) x10^3/uL Basophils # 0.06 (0-0.4) x10^3/uL Sodium 140 (137-145) mmol/L Potassium 3.9 (3.5-5.1) mmol/L Chloride 105 (98-107) mmol/L Carbon Dioxide 26 (22-30) mmol/L Anion Gap 12.2 (5-15) MEQ/L BUN 18 (9-20) mg/dL Creatinine 1.03 (0.66-1.25) mg/dL Estimated GFR > 60.0 ML/MIN Glucose 102 (74-106) mg/dL Calcium 8.9 (8.4-10.2) mg/dL Total Bilirubin 1.00 (0.2-1.3) mg/dL AST 36 (17-59) U/L ALT 25 (0-50) U/L Alkaline Phosphatase 79 (38-126) U/L NT-Pro-B Natriuret Pep (0-1800) pg/mL Serum Total Protein 6.5 (6.3-8.2) g/dL Albumin 3.7 (3.5-5.0) g/dL Urinalys Dipstick Clnc Urine Color (YELLOW) Urine Appearance (CLEAR) Urine pH (5-6) Ur Specific [place] (1.005-1.025) POC Urine Protein Conf (Negative) Urine Ketones (NEGATIVE) Urine Nitrite (NEGATIVE) Urine Bilirubin (NEGATIVE) Urine Urobilinogen (0-1) mg/dL Urine Leukocytes (NEGATIVE) Urine WBC (Auto) (0-5) /HPF Urine RBC (Auto) (0-2) /HPF U Epithel Cells (Auto) (FEW) /HPF Urine Bacteria (Auto) (NEGATIVE) /HPF Urine RBC (0-5) Juan Luis/ul Ur Culture Indicated? Urine Glucose (NEGATIVE) mg/dL Influenza Type A Ag (NEGATIVE) Influenza Type B Ag (NEGATIVE) RSV (PCR) (Negative) SARS-CoV-2 (PCR) (NEGATIVE) - Progress Progress: improved Progress Note: Patient presented to our ED with lower abdominal pain and testicular pain. CAT scan incidentally revealed pulmonary congestion. Further work-up revealed elevated BNP consistent with congestive heart failure. Case discussed with Dr. 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 Patient transferred to [facility] for further evaluation and treatment. Patient received Lasix prior to transfer. Portions of this note were created with voice recognition technology. There may be grammatical, spelling, punctuation or sound alike errors 12/26/21 06:32 Counseled pt/family regarding: lab results, diagnosis, rad results - Departure Departure Disposition: Transfer Clinical Impression: Cardiomegaly, Bibasilar pleural effusion, Retrocardiac hiatal hernia, Atherosclerotic vascular calcifications, Abdominal aortic aneurysm (AAA) 3.0 cm to 5.5 cm in diameter in male, Hepatic granuloma, Cholelithiasis, Renal cyst, Nephrolithiasis, Kidney mass, Diverticulosis, Enlarged prostate, Arthritis, lumbar spine, Congestive heart failure Condition: Stable Critical Care Time: No Referrals: JESSIE ROBBINS DO [Primary Care Provider] - Follow up/PCP as directed Instructions: Heart Failure
[2021-12-25 12:21] LABS: Absolute Neutrophil Ct (ANC) 6.23 x10^3/uL (1.4-6.9); Basophil (Absolute #) 0.06 x10^3/uL (0-0.4); Eosinophil % 3.1 % (0.00-5.0); Eosinophil (Absolute #) 0.24 x10^3/uL (0-0.5); Hematocrit 35.8 % (42-50); Hemoglobin 11.8 g/dL (12.5-18.0); Lymphocyte (Absolute #) 0.62 x10^3/uL (1.0-4.6); Lymphocytes % 8.1 % (24.0-44.0); Mean Cell Volume 100.6 fL (78-100); Mean Corpuscular Hemoglobin 33.1 pg (26-32); Monocyte (Absolute #) 0.49 x10^3/uL (0.0-1.3); Monocytes % 6.4 % (0.0-12.0); Neutrophil % 81.3 % (36.0-66.0); Platelet Count 159 x10^3/uL (150-450); Red Blood Count 3.56 x10^6/uL (4.1-5.6); Red Cell Distribution Width 13.5 % (11.5-14.0); White Blood Count 7.7 x10^3/uL (4.0-10.5)
[2021-12-25 12:35] LABS: ALBUMIN 3.7 g/dL (3.5-5.0); ALKALINE PHOSPHATASE 79 U/L (38-126); ANION GAP 12.2 MEQ/L (5-15); BLOOD UREA NITROGEN 18 mg/dL (9-20); CHLORIDE 105 mmol/L (98-107); Calcium 8.9 mg/dL (8.4-10.2); Carbon Dioxide 26 mmol/L (22-30); Creatinine 1 1.03 mg/dL (0.66-1.25); EST GLOMERULAR FILTRATION RATE > 60.0 ML/MIN; Glucose 102 mg/dL (74-106); Potassium 3.9 mmol/L (3.5-5.1); SGOT/AST 36 U/L (17-59); SGPT/ALT 25 U/L (0-50); SODIUM 140 mmol/L (137-145); Total Protein 6.5 g/dL (6.3-8.2)
--- NOTE | 2021-12-25 13:10 | XRAY ---
Exam: CT of the abdomen and pelvis without IV contrast from 12/25/2021. CTDI: 4.82 mGy Comparison: CT of the abdomen and pelvis without IV contrast from 06/25/2020. Indication: 86-year-old male with history of abdominal pain and trouble urinating 2 weeks. Technique: Non-IV contrast axial images were obtained through the abdomen and pelvis. Reconstructed coronal and sagittal images were created and reviewed. No oral contrast was given. Findings: The heart size is at least moderately enlarged. Leads from a cardiac pacemaker are seen, as before. The patient has had prior sternotomy. The third sternal wire from the bottom is broken. There are moderate bibasilar posterior pleural effusions. Correlate clinically regarding CHF or fluid volume overload. I believe there is a mild retrocardiac hiatal hernia representing no change. Assessment of the solid organs is limited without the use of IV contrast. Extensive atherosclerotic vascular calcification is seen. I again note a distal abdominal aortic aneurysm which measures about 3 cm in diameter. This is unchanged. The liver is of unremarkable size and uniform attenuation, except for a tiny calcified hepatic granuloma. I again note multiple high attenuation gallstones within the gallbladder lumen representing no change. The gallbladder is not enlarged. The spleen is remarkable for numerous calcified granulomas. No splenic mass is seen. There appears to be mild diffuse atrophy of the pancreas. The adrenal glands reveal no gross abnormality. Extensive vascular calcification is seen within the kidneys. There appear to be a few scattered low-attenuation renal cysts. There appears to be a 1 cm in diameter round hyperdense cyst at the posterior lateral margin of the lower pole of the right kidney. On axial image #19, there is a suggestion of a small nonobstructing stone within the upper pole of the right kidney. No hydronephrosis is seen. In addition, I cannot include an isoattenuated soft tissue mass at the posterior lateral margin of the upper pole of the left kidney measuring about 2.3 cm in diameter. See axial images #25 through #27. It is difficult to tell whether this was present on the prior study. It appears to be a bit more bulbous in configuration. I see no free intraperitoneal air or ventral abdominal wall hernia. Some radiopaque fastener devices are seen attached to the lower abdominal anterior wall from prior hernia repair with a mesh. The bowel appears nonobstructed. Sigmoid colon diverticulosis without evidence of diverticulitis is again seen. Some scattered stool is seen within the colon. No obvious findings of appendicitis are noted within the right lower quadrant. There is no free intraperitoneal fluid within the pelvis. The urinary bladder is only mildly distended. This accentuates the urinary bladder wall some. The prostate gland appears enlarged measuring about 5.0 cm in greatest diameter. This is similar to 06/25/2020. Skeleton reveals no acute fracture or aggressive bone lesion. There is evidence of advanced spondylosis and multilevel degenerative disc disease throughout the visualized thoracolumbar spine. There is minimal subluxation at L1-L2 and L4-L5 which is most likely degenerative in etiology. Impression: 1. Moderate cardiomegaly with moderate bibasilar pleural effusions, right greater than left. Correlate clinically regarding CHF or fluid volume overload. Pacemaker wires are again noted on the right. 2. In addition, I again see a mild hiatal hernia. 3. I again note evidence of cholelithiasis, bilateral renal cortical cysts, 3 cm in diameter distal abdominal aortic aneurysm, sigmoid diverticulosis, and enlargement of the prostate gland. I also note multilevel degenerative disc disease and degenerative osteoarthritis throughout the visualized spine. There appears to be a lower anterior abdominal wall mesh with fastener devices representing no change. 4. I cannot exclude a soft tissue mass arising from the posterior lateral aspect of the upper pole of the left kidney. Assessment is limited on non-IV contrast CT study. See axial images #25 through #27. 5. There appears to be a small nonobstructing stone within the upper pole of the right kidney.
--- NOTE | 2021-12-25 13:32 | XRAY ---
Exam: Testicular ultrasound from 12/25/2021. Comparison: None. Indication: 86-year-old male for rule out testicular torsion. Findings: The right testicle measures 4.5 cm x 3.2 cm x 3.0 cm. Normal color blood flow and Doppler arterial signal are seen within the right testicle. A 0.7 cm x 0.5 cm x 0.5 cm cyst is seen within the posterior aspect of the right testicle. A definite solid mass is not seen. The epididymal head measures 1.3 cm x 1.2 cm x 1.4 cm and is remarkable for a small cyst measuring 0.7 cm x 0.6 cm x 0.5 cm. Normal color blood flow is seen within the right epididymal head. There is a moderate-sized hydrocele on the right with floating particles within the fluid surrounding the right testicle. The left testicle measures 4.1 cm x 2.3 cm 3.0 cm. Normal color blood flow and Doppler arterial signal are seen within the left testicle. No solid left testicular mass is seen. The head of the left epididymis measures 1.4 cm x 1.0 cm x 2.3 cm and is remarkable for a tiny 0.3 cm x 0.2 cm x 0.3 cm cyst. Some color blood flow is seen within the left epididymal head. A varicocele is seen within the left hemiscrotum which demonstrates increased flow on color imaging with Valsalva maneuver. I also note a moderate sized left hydrocele with floating particles within the fluid. Impression: 1. I see no evidence of testicular torsion. 2. Moderate sized bilateral hydroceles are seen with floating particles within each hydrocele. 3. Left-sided varicocele, small right testicular cyst, and cysts within each epididymal head, larger on the right than left.
--- NOTE | 2021-12-25 15:09 | XRAY ---
Exam: AP upright portable chest film from 12/25/2021. Comparison: AP upright portable chest film from 02/10/2015. Indication: Pulmonary congestion. Findings: There is mild to moderate cardiac enlargement. In addition, there appears to be some mild scattered pulmonary vascular/interstitial congestion at the right lung base and the lower 75% of the left lung. The right upper lung field and left lung apex remain clear. The right lateral costophrenic angle is indistinct. These findings could be due to early CHF or fluid volume overload. A dense air space infiltrate is not seen. Calcified mildly tortuous descending thoracic aorta is seen. Right-sided cardiac pacemaker is seen with [address], one extending toward the right atrium and the other extending toward the right ventricle. The leads appear intact. I again see evidence of sternotomy with the third sternal wire from the bottom appearing broken. Mild biapical pleural thickening is seen. There is no pneumothorax. Mild degenerative changes are seen within the right shoulder. Impression: 1. Moderate cardiomegaly, mild bilateral vascular/interstitial congestion, and slight blunting of the right costophrenic angle suggest mild CHF or fluid volume overload. Correlate clinically. 2. Evidence of prior CABG with midline sternotomy and right-sided cardiac pacemaker are again seen.
[2021-12-25 15:13] LABS: INFLUENZA A NEGATIVE (NEGATIVE); INFLUENZA B NEGATIVE (NEGATIVE); RESPIRATORY SYNCTIAL VIRUS NEGATIVE (Negative); SARS-CoV-2 Xpert Express NEGATIVE (NEGATIVE)
[2021-12-25] MEDS ORDERED: Lasix 40 MG/4 ML IV ONE (15:42)
[2021-12-25 16:02] LABS: Appearance CLEAR (CLEAR); Bilirubin NEGATIVE (NEGATIVE); Dipstick done @ ? MAIN LAB; Glucose NEGATIVE (NEGATIVE); Ketones NEGATIVE (NEGATIVE); Nitrite NEGATIVE (NEGATIVE); Protein,Urine Dip TRACE (Negative); RBC MODERATE NON-HEM Ery/ul (0-5); Specific Gravity 1.015 (1.005-1.025); Urobilinogen 0.2 mg/dL (0-1)
[2021-12-25 16:04] LABS: Epithelial Cells OCCASIONAL /HPF (FEW)
[2021-12-25 16:25] LABS: Urine Cultured Indicated? NO
[2021-12-25] MEDS ORDERED: Lasix 40 MG/4 ML ONE (18:05)
[2021-12-25 18:23] VITALS: BP 192/118; PULSE 85
[2021-12-26 06:36] VITALS: O2SAT 95
== END 2021-12-25 19:09 | disposition short-term general hospital (02) ==
LOC: ED 11:33
DX: I11.0 Hypertensive heart disease with heart failure (principal); I50.9 Heart failure, unspecified; K44.9 Diaphragmatic hernia without obstruction or gangrene; I70.90 Unspecified atherosclerosis; I71.4 Abdominal aortic aneurysm, without rupture; K75.3 Granulomatous hepatitis, not elsewhere classified; K80.20 Calculus of gallbladder without cholecystitis without obstruction; N20.0 Calculus of kidney; N28.1 Cyst of kidney, acquired; N28.89 Other specified disorders of kidney and ureter; K57.90 Diverticulosis of intestine, part unspecified, without perforation or abscess without bleeding; N40.0 Benign prostatic hyperplasia without lower urinary tract symptoms; M47.816 Spondylosis without myelopathy or radiculopathy, lumbar region; R10.30 Lower abdominal pain, unspecified; N50.819 Testicular pain, unspecified; E78.5 Hyperlipidemia, unspecified; J44.9 Chronic obstructive pulmonary disease, unspecified; Z79.01 Long term (current) use of anticoagulants; Z79.899 Other long term (current) drug therapy; Z28.310 Unvaccinated for COVID-19; Z20.828 Contact with and (suspected) exposure to other viral communicable diseases
CPT/HCPCS: 0241U; 36000; 36415; 71045; 74176; 76870; 80053; 81015; 83880; 85025; 96374; 99285; 96375; J1940

== ENCOUNTER 2022-03-24 15:32 | Inpatient (IN) | payer MEDICARE, OTHER ==
[2022-03-24] MEDS ORDERED: DUONEB 0.5-3 MG/3 ml Neb IH ONE ×2 (16:02→16:06)
[2022-03-24] MEDS ORDERED: Zithromax 500 MG/ 250 ML NaCl Premix 500 MG/250 ML IVPB IV STA (16:07)
[2022-03-24] MEDS ORDERED: solu-MEDROL 125 MG, Sterile H2O 10 ml 2 ML IV ONE ×2 (16:07)
[2022-03-24] MEDS ORDERED: ROCEPHIN 2 Gm-D5w 50ML BAG** 2 G/50 ML IVPB IV STA (16:07)
[2022-03-24] MEDS ORDERED: solu-MEDROL ONE (16:08)
[2022-03-24] MEDS ORDERED: Sterile H2O 10 ml IJ ONE (16:08)
--- NOTE | 2022-03-24 16:12 | ERPHSYRPT ---
- History of Present Illness Time Seen by Provider: 03/24/22 15:33 Source: patient, EMS Patient Subjective Stated Complaint: C/O cough for the past 3-4 days and is now becoming fatigued Triage Nursing Assessment: Patient ambulated back to ED with a slow, steady gait using his rolling walker. Patient did become SOB with the exertion from the ambulation. He is alert but very hard of hearing. Wheezing and a cough noted. Skin is warm, dry, aple. Physician History: 86 years old male with history of atrial fibrillation, congestive heart failure, pacemaker placement on Eliquis, coronary artery disease status post stenting, COPD, hypertension, hyperlipidemia presented in the ER with 3 to 4 days history of increasing cough productive of yellow-brown sputum moderate in amount with associated increased wheezing and shortness of breath. Patient reports shortness of breath initially with activity and now even resting with tightness and pressure in the chest. Subjective feeling of fever and chills. Timing/Duration: day(s) (3), gradual onset, worse Severity of Dyspnea-Max: moderate Severity of Dyspnea-Current: moderate Possible Cause: unknown cause Modifying Factors: Worsens With: coughing, exertion Associated Symptoms: cough, chest pain/discomfort, chills, heaviness, productive cough, tightness Allergies/Adverse Reactions: rosuvastatin calcium [From Crestor] Allergy (Verified 03/24/22 20:05) legs weak, couldn't ambulate Home Medications: Apixaban [Eliquis] 5 mg PO BID 11/08/18 [History] carvediloL [Carvedilol] 25 mg PO BID 11/08/18 [History] Folic Acid 1 mg [Folate 1 mg] 1 mg PO BID 01/04/20 [History] Nitroglycerin 0.4 mg SL UD 01/04/20 [History] ALPRAZolam [Alprazolam] 1 tab PO DAILY 03/24/22 [History] Empagliflozin [Jardiance] 1 tab PO DAILY 03/24/22 [History] Furosemide [Lasix] 1 tab PO DAILY 03/24/22 [History] Levothyroxine Sodium [Euthyrox] 1 tab PO DAILY 03/24/22 [History] Hx Tetanus, Diphtheria Vaccination/Date Given: Yes Hx Influenza Vaccination/Date Given: No Hx Pneumococcal Vaccination/Date Given: Yes Immunizations Up to Date: Yes Travel Risk - International Travel Have you traveled outside of the country in past 3 weeks: No - Coronavirus Screening Are you exhibiting any of the following symptoms?: Yes Symptoms: Cough: New Onset, Shortness of Breath, Headaches/Body Aches/Fatigue Close contact with a COVID-19 positive Pt in past 14-21 Days: No - Vaccine Status Have you recieved a Covid-19 vaccination: No - Review of Systems Constitutional: Fever, Chills, Fatigue, Weakness Eyes: No Symptoms Ears, Nose, & Throat: Nose Congestion Respiratory: Cough, Dyspnea, Dyspnea on Exertion (CAMACHO), Wheezing Cardiac: Edema Abdominal/Gastrointestinal: No Symptoms Genitourinary Symptoms: No Symptoms Musculoskeletal: No Symptoms Skin: No Symptoms Neurological: No Symptoms Psychological: No Symptoms Endocrine: No Symptoms Hematologic/Lymphatic: No Symptoms Immunological/Allergic: No Symptoms - Past Medical History Pertinent Past Medical History: Yes Neurological History: No Pertinent History ENT History: Cataracts Cardiac History: Arrhythmia, Congestive Heart Failure, High Cholesterol, Hypertension, Myocardial Infarction ([place]) Respiratory History: CHF, COPD Endocrine Medical History: Hypoglycemia, Hypothyroidism Musculoskeletal History: Arthritis GI Medical History: No Pertinent History History: Renal Disease Psycho-Social History: No Pertinent History Male Reproductive Disorders: No Pertinent History Other Medical History: A-fib - Past Surgical History Past Surgical History: Yes Neuro Surgical History: No Pertinent History Cardiac: CABG, Cardiac Catheterization, Cardiac Stent, Internal Defibrillator, Pacemaker Respiratory: No Pertinent History Gastrointestinal: Hernia Repair Genitourinary: No Pertinent History Musculoskeletal: No Pertinent History Male Surgical History: No Pertinent History Other Surgical History: cataracts,QUAD BIPASS, hernior. x three - Social History Smoking Status: Former smoker Exposure to second hand smoke: No Drug Use: none Patient Lives Alone: No - Nursing Vital Signs Nursing Vital Signs: Initial Vital Signs Temperature 97.7 F 03/24/22 15:49 Pulse Rate 89 03/24/22 15:49 Respiratory Rate 30 H 03/24/22 15:49 Blood Pressure 178/106 03/24/22 15:49 O2 Sat by Pulse Oximetry 95 03/24/22 15:49 Pain Scale Pain Intensity 0 - Physical Exam General Appearance: no apparent distress, alert Eye Exam: PERRL/EOMI Ears, Nose, Throat Exam: hearing grossly normal, pharyngeal erythema Neck Exam: normal inspection, non-tender, supple, full range of motion Respiratory Exam: diminished breath sounds, accessory muscle use, crackles/rales, wheezing Abdominal/Gastrointestinal Exam: soft, normal bowel sounds, No tenderness Extremity Exam: non-tender, normal range of motion Neurologic Exam: alert, oriented x 3, cooperative Skin Exam: normal color SpO2 Interpretation: normal SpO2: 95 O2 Delivery: Room Air - Course EKG Interpreted by Me: RATE (94 ventricular paced rhythm, ), Left [place] Deviation, Non-specific ST Changes Ordered Tests: Medication Summary Discontinued Medications Generic Name Dose Route Start Last Admin Trade Name Freq PRN Reason Stop Dose Admin Acetaminophen 650 mg 03/24/22 19:47 Acetaminophen 325 Mg Tablet PO 04/23/22 19:46 Q4H PRN PRN PAIN AND/OR FEVER Albuterol/Ipratropium Confirm 03/24/22 16:02 Ipratropium/Albuterol Sulfate 3 Ml Ampul.Neb Administered 03/24/22 16:03 Dose 3 ml IH .STK-MED ONE Albuterol/Ipratropium 3 ml 03/24/22 16:06 03/24/22 16:08 Ipratropium/Albuterol Sulfate 3 Ml Ampul.Neb 03/24/22 16:07 3 ml STAT ONE Administration Albuterol/Ipratropium 3 ml 03/24/22 19:47 03/26/22 07:08 Ipratropium/Albuterol Sulfate 3 Ml Ampul.Neb 04/23/22 19:46 3 ml Q6HRT RADU Administration Albuterol/Ipratropium 3 ml 03/26/22 13:04 Ipratropium/Albuterol Sulfate 3 Ml Ampul.[facility] 04/25/22 13:03 Q4HPRN PRN SHORTNESS OF BREATH/WHEEZING Alprazolam 0.25 mg 03/25/22 09:42 Alprazolam 0.25 Mg Tablet PO 04/24/22 09:41 BID PRN PRN ANXIETY Apixaban Confirm 03/24/22 22:26 Apixaban 2.5 Mg Tablet Administered 03/24/22 22:27 Dose 5 mg .ROUTE .STK-MED ONE Apixaban 5 mg 03/24/22 22:16 03/24/22 22:43 Apixaban 2.5 Mg Tablet PO 03/24/22 22:17 5 mg ONCE ONE Administration Apixaban 5 mg 03/25/22 10:00 03/27/22 09:58 Apixaban 2.5 Mg Tablet PO 04/24/22 09:59 5 mg BID RADU Administration Aspirin 324 mg 03/24/22 17:13 03/24/22 17:16 Aspirin 81 Mg Tab.Chew PO 03/24/22 17:14 324 mg STAT ONE Administration Benzonatate 100 mg 03/27/22 11:21 03/27/22 11:47 Benzonatate 100 Mg Capsule PO 03/27/22 11:22 100 mg ONCE ONE Administration Carvedilol Confirm 03/24/22 22:26 Carvedilol 12.5 Mg Tablet Administered 03/24/22 22:27 Dose 25 mg .ROUTE .STK-MED ONE Carvedilol 25 mg 03/24/22 22:16 03/24/22 22:44 Carvedilol 12.5 Mg Tablet PO 03/24/22 22:17 25 mg ONCE ONE Administration Carvedilol 25 mg 03/25/22 10:00 03/27/22 09:57 Carvedilol 12.5 Mg Tablet PO 04/24/22 09:59 25 mg BID RADU Administration Methylprednisolone Sodium 0 mg 03/24/22 16:07 03/24/22 16:10 Succinate 125 mg/ Sterile IV 03/24/22 16:08 125 mg Water 2 ml STAT ONE Administration Methylprednisolone Sodium 0 mg 03/25/22 10:00 03/27/22 09:57 Succinate 80 mg/ Sterile Water IV 04/24/22 09:59 40 mg 2 ml Q12HT RADU Administration Empagliflozin 10 mg 03/25/22 10:00 03/27/22 09:58 Empagliflozin 10 Mg Tablet PO 04/24/22 09:59 10 mg DAILY RADU Administration Folic Acid Confirm 03/24/22 22:26 Folic Acid 1 Mg Tablet Administered 03/24/22 22:27 Dose 1 mg .ROUTE .STK-MED ONE Folic Acid 1 mg 03/24/22 22:17 03/24/22 22:44 Folic Acid 1 Mg Tablet PO 03/24/22 22:18 1 mg ONCE ONE Administration Folic Acid 1 mg 03/25/22 10:00 03/27/22 09:57 Folic Acid 1 Mg Tablet PO 04/24/22 09:59 1 mg BID RADU Administration Furosemide 40 mg 03/24/22 17:14 03/24/22 17:16 Furosemide 40 Mg/4 Ml Vial IV 03/24/22 17:15 40 mg STAT ONE Administration Furosemide Confirm 03/24/22 17:15 Furosemide 40 Mg/4 Ml Vial Administered 03/24/22 17:16 Dose 40 mg .ROUTE .STK-MED ONE Furosemide 20 mg 03/24/22 20:30 03/24/22 20:38 Furosemide 20 Mg/Vial IV 03/24/22 20:31 20 mg ONCE ONE Administration Furosemide 40 mg 03/25/22 10:00 03/26/22 09:59 Furosemide 40 Mg/4 Ml Vial IV 04/24/22 09:59 40 mg DAILY RADU Administration Furosemide 40 mg 03/26/22 17:00 03/27/22 09:55 Furosemide 40 Mg/4 Ml Vial IV 04/25/22 16:59 20 mg BID DIURETIC RADU Administration Azithromycin 500 mg in 250 mls @ 250 mls/hr 03/24/22 16:07 03/24/22 17:38 Zithromax 500 Mg/ 250 Ml Nacl Premix IV 03/24/22 17:06 Infused STAT STA Infusion Ceftriaxone Sodium/Dextrose 2 g in 50 mls @ 100 mls/hr 03/24/22 16:07 03/24/22 17:07 Rocephin 2 Gm-D5w 50ml Bag IV 03/24/22 16:36 Infused STAT STA Infusion Ceftriaxone Sodium/Dextrose Confirm 03/24/22 16:29 Rocephin 2 Gm-D5w 50ml Bag Administered 03/24/22 16:30 Dose 2 g in 50 mls @ ud IV .STK-MED ONE Azithromycin Confirm 03/24/22 16:34 Zithromax 500 Mg/ 250 Ml Nacl Premix Administered 03/24/22 16:35 Dose 500 mg in 250 mls @ ud IV .STK-MED ONE Ceftriaxone Sodium/Dextrose 1 g in 50 mls @ 100 mls/hr 03/25/22 10:00 03/27/22 09:58 Rocephin 1 Gm-D5w 50 Ml Bag IV 03/29/22 09:59 100 mls/hr Q24H10 RADU Administration Azithromycin 500 mg in 250 mls @ 250 mls/hr 03/25/22 10:00 03/27/22 11:50 Zithromax 500 Mg/ 250 Ml Nacl Premix IV 04/24/22 09:59 Not Given Q24H10 RADU Insulin Human Lispro 0 unit 03/24/22 19:47 Insulin Lispro 1 Unit SQ 04/23/22 19:46 UD PRN HYPERGLYCEMIA Levothyroxine Sodium 88 mcg 03/25/22 10:00 03/27/22 09:58 Levothyroxine Sodium 88 Mcg Tablet PO 04/24/22 09:59 88 mcg DAILY RADU Administration Methylprednisolone Sodium Succinate Confirm 03/24/22 16:08 Methylprednis Sod Succ 125 Mg/2 Ml Vial Administered 03/24/22 16:09 Dose 125 mg .ROUTE .STK-MED ONE Morphine Sulfate 2 mg 03/24/22 19:47 Morphine Sulfate 2 Mg/Ml Inj IV 03/29/22 19:46 Q4H PRN PRN PAIN Nitroglycerin 0.4 mg 03/24/22 22:17 Nitroglycerin 0.4 Mg Tablet Bottle SL 04/23/22 22:16 UD PRN CHEST PAIN Ondansetron HCl 4 mg 03/24/22 19:47 Ondansetron Hcl 4 Mg/2 Ml Vial IV 04/23/22 19:46 Q6H PRN PRN NAUSEA/VOMITING Pantoprazole Sodium 40 mg 03/25/22 10:00 03/27/22 09:56 Pantoprazole 40 Mg Vial IV 04/24/22 09:59 40 mg Q24H10 RADU Administration Potassium Bicarbonate 25 meq 03/25/22 10:00 03/27/22 09:55 Potassium Bicarbonate 25 Meq Tab PO 04/24/22 09:59 25 meq DAILY RADU Administration Sterile Water Confirm 03/24/22 16:08 Water For Injection,Sterile 10 Ml Vial Administered 03/24/22 16:09 Dose 10 ml IJ .STK-MED ONE Lab/Rad Data: Laboratory Result Diagrams 03/25/22 04:50 03/25/22 04:50 Laboratory Results 03/25/22 03/25/22 03/25/22 Range/Units 07:23 04:50 04:50 WBC (4.0-10.5) x10^3/uL RBC (4.1-5.6) x10^6/uL Hgb (12.5-18.0) g/dL Hct (42-50) % MCV (78-100) fL MCH (26-32) pg MCHC (32-36) g/dL RDW (11.5-14.0) % Plt Count (150-450) x10^3/uL MPV (7.5-11.0) fL Gran % (36.0-66.0) % Immature Gran % (Auto) (0.00-0.4) % Nucleat RBC Rel Count (0.00-0.1) % Eos # (Auto) (0-0.5) x10^3/uL Immature Gran # (Auto) (0.00-0.03) x10^3u/L Absolute Lymphs (auto) (1.0-4.6) x10^3/uL Absolute Monos (auto) (0.0-1.3) x10^3/uL Absolute Nucleated RBC (0.00-0.01) x10^3u/L Lymphocytes % (24.0-44.0) % Monocytes % (0.0-12.0) % Eosinophils % (0.00-5.0) % Basophils % (0.0-0.4) % Absolute Granulocytes (1.4-6.9) x10^3/uL Basophils # (0-0.4) x10^3/uL Sodium 140 (137-145) mmol/L Potassium 3.5 (3.5-5.1) mmol/L Chloride 103 (98-107) mmol/L Carbon Dioxide 29 (22-30) mmol/L Anion Gap 11.7 (5-15) MEQ/L BUN 27 H (9-20) mg/dL Creatinine 1.15 (0.66-1.25) mg/dL Estimated GFR > 60.0 ML/MIN Glucose 139 H (74-106) mg/dL POC Glucometer 138 H (74 to 106) mg/dL Lactic Acid (0.4-2.0) Calcium 8.9 (8.4-10.2) mg/dL Magnesium (1.6-2.3) mg/dL Total Bilirubin 0.80 (0.2-1.3) mg/dL AST 50 (17-59) U/L ALT 39 (0-50) U/L Alkaline Phosphatase 86 (38-126) U/L Troponin I (0.000-0.034) ng/mL NT-Pro-B Natriuret Pep 18539 H (0-1800) pg/mL Serum Total Protein 6.7 (6.3-8.2) g/dL Albumin 3.9 (3.5-5.0) g/dL Vitamin B12 801 (239-931) pg/mL Procalcitonin (0.030-0.080) ng/mL TSH 3rd Generation 0.699 (0.47-4.68) mIU/L Urinalys Dipstick Clnc Urine Color (YELLOW) Urine Appearance (CLEAR) Urine pH (5-6) Ur Specific [place] (1.005-1.025) POC Urine Protein Conf (Negative) Urine Ketones (NEGATIVE) Urine Nitrite (NEGATIVE) Urine Bilirubin (NEGATIVE) Urine Urobilinogen (0-1) mg/dL Urine Leukocytes (NEGATIVE) Urine WBC (Auto) (0-5) /HPF Urine RBC (Auto) (0-2) /HPF U Hyaline Cast (Auto) (0-2) /LPF U Epithel Cells (Auto) (FEW) /HPF Urine Bacteria (Auto) (NEGATIVE) /HPF Urine RBC (0-5) Juan Luis/ul Other Casts (Auto) (NEGATIVE) /LPF Urine Mucus (Auto) (NEGATIVE) /HPF Ur Culture Indicated? Urine Glucose (NEGATIVE) mg/dL Influenza Type A Ag (NEGATIVE) Influenza Type B Ag (NEGATIVE) RSV (PCR) (Negative) SARS-CoV-2 (PCR) (NEGATIVE) Slides for Path Review 03/25/22 03/25/22 03/24/22 Range/Units 04:50 00:42 21:11 WBC 4.5 (4.0-10.5) x10^3/uL RBC 3.97 L (4.1-5.6) x10^6/uL Hgb 12.6 (12.5-18.0) g/dL Hct 39.5 L (42-50) % MCV 99.5 (78-100) fL MCH 31.7 (26-32) pg MCHC 31.9 L (32-36) g/dL RDW 13.9 (11.5-14.0) % Plt Count 174 (150-450) x10^3/uL MPV 10.3 (7.5-11.0) fL Gran % 93.2 H (36.0-66.0) % Immature Gran % (Auto) 0.4 (0.00-0.4) % Nucleat RBC Rel Count 0.0 (0.00-0.1) % Eos # (Auto) 0 (0-0.5) x10^3/uL Immature Gran # (Auto) 0.02 (0.00-0.03) x10^3u/L Absolute Lymphs (auto) 0.24 L (1.0-4.6) x10^3/uL Absolute Monos (auto) 0.04 (0.0-1.3) x10^3/uL Absolute Nucleated RBC 0.00 (0.00-0.01) x10^3u/L Lymphocytes % 5.3 L (24.0-44.0) % Monocytes % 0.9 (0.0-12.0) % Eosinophils % 0.0 (0.00-5.0) % Basophils % 0.2 (0.0-0.4) % Absolute Granulocytes 4.23 (1.4-6.9) x10^3/uL Basophils # 0.01 (0-0.4) x10^3/uL Sodium (137-145) mmol/L Potassium (3.5-5.1) mmol/L Chloride (98-107) mmol/L Carbon Dioxide (22-30) mmol/L Anion Gap (5-15) MEQ/L BUN (9-20) mg/dL Creatinine (0.66-1.25) mg/dL Estimated GFR ML/MIN Glucose (74-106) mg/dL POC Glucometer 131 H (74 to 106) mg/dL Lactic Acid (0.4-2.0) Calcium (8.4-10.2) mg/dL Magnesium (1.6-2.3) mg/dL Total Bilirubin (0.2-1.3) mg/dL AST (17-59) U/L ALT (0-50) U/L Alkaline Phosphatase (38-126) U/L Troponin I 0.059 H* (0.000-0.034) ng/mL NT-Pro-B Natriuret Pep (0-1800) pg/mL Serum Total Protein (6.3-8.2) g/dL Albumin (3.5-5.0) g/dL Vitamin B12 (239-931) pg/mL Procalcitonin (0.030-0.080) ng/mL TSH 3rd Generation (0.47-4.68) mIU/L Urinalys Dipstick Clnc Urine Color (YELLOW) Urine Appearance (CLEAR) Urine pH (5-6) Ur Specific [place] (1.005-1.025) POC Urine Protein Conf (Negative) Urine Ketones (NEGATIVE) Urine Nitrite (NEGATIVE) Urine Bilirubin (NEGATIVE) Urine Urobilinogen (0-1) mg/dL Urine Leukocytes (NEGATIVE) Urine WBC (Auto) (0-5) /HPF Urine RBC (Auto) (0-2) /HPF U Hyaline Cast (Auto) (0-2) /LPF U Epithel Cells (Auto) (FEW) /HPF Urine Bacteria (Auto) (NEGATIVE) /HPF Urine RBC (0-5) Juan Luis/ul Other Casts (Auto) (NEGATIVE) /LPF Urine Mucus (Auto) (NEGATIVE) /HPF Ur Culture Indicated? Urine Glucose (NEGATIVE) mg/dL Influenza Type A Ag (NEGATIVE) Influenza Type B Ag (NEGATIVE) RSV (PCR) (Negative) SARS-CoV-2 (PCR) (NEGATIVE) Slides for Path Review YES 03/24/22 03/24/22 03/24/22 Range/Units 20:19 18:25 18:06 WBC (4.0-10.5) x10^3/uL RBC (4.1-5.6) x10^6/uL Hgb (12.5-18.0) g/dL Hct (42-50) % MCV (78-100) fL MCH (26-32) pg MCHC (32-36) g/dL RDW (11.5-14.0) % Plt Count (150-450) x10^3/uL MPV (7.5-11.0) fL Gran % (36.0-66.0) % Immature Gran % (Auto) (0.00-0.4) % Nucleat RBC Rel Count (0.00-0.1) % Eos # (Auto) (0-0.5) x10^3/uL Immature Gran # (Auto) (0.00-0.03) x10^3u/L Absolute Lymphs (auto) (1.0-4.6) x10^3/uL Absolute Monos (auto) (0.0-1.3) x10^3/uL Absolute Nucleated RBC (0.00-0.01) x10^3u/L Lymphocytes % (24.0-44.0) % Monocytes % (0.0-12.0) % Eosinophils % (0.00-5.0) % Basophils % (0.0-0.4) % Absolute Granulocytes (1.4-6.9) x10^3/uL Basophils # (0-0.4) x10^3/uL Sodium (137-145) mmol/L Potassium (3.5-5.1) mmol/L Chloride (98-107) mmol/L Carbon Dioxide (22-30) mmol/L Anion Gap (5-15) MEQ/L BUN (9-20) mg/dL Creatinine (0.66-1.25) mg/dL Estimated GFR ML/MIN Glucose (74-106) mg/dL POC Glucometer (74 to 106) mg/dL Lactic Acid 1.6 (0.4-2.0) Calcium (8.4-10.2) mg/dL Magnesium (1.6-2.3) mg/dL Total Bilirubin (0.2-1.3) mg/dL AST (17-59) U/L ALT (0-50) U/L Alkaline Phosphatase (38-126) U/L Troponin I 0.069 H* (0.000-0.034) ng/mL NT-Pro-B Natriuret Pep (0-1800) pg/mL Serum Total Protein (6.3-8.2) g/dL Albumin (3.5-5.0) g/dL Vitamin B12 (239-931) pg/mL Procalcitonin (0.030-0.080) ng/mL TSH 3rd Generation (0.47-4.68) mIU/L Urinalys Dipstick Clnc MAIN LAB Urine Color YELLOW (YELLOW) Urine Appearance CLEAR (CLEAR) Urine pH 5.5 (5-6) Ur Specific [place] >=1.030 (1.005-1.025) POC Urine Protein Conf 100 (Negative) Urine Ketones NEGATIVE (NEGATIVE) Urine Nitrite NEGATIVE (NEGATIVE) Urine Bilirubin SMALL (NEGATIVE) Urine Urobilinogen 0.2 (0-1) mg/dL Urine Leukocytes NEGATIVE (NEGATIVE) Urine WBC (Auto) 0-2 (0-5) /HPF Urine RBC (Auto) 0-2 (0-2) /HPF U Hyaline Cast (Auto) 3-5 (0-2) /LPF U Epithel Cells (Auto) NONE (FEW) /HPF Urine Bacteria (Auto) NONE (NEGATIVE) /HPF Urine RBC TRACE-INTACT (0-5) Juan Luis/ul Other Casts (Auto) NEGATIVE (NEGATIVE) /LPF Urine Mucus (Auto) SLIGHT (NEGATIVE) /HPF Ur Culture Indicated? NO Urine Glucose NEGATIVE (NEGATIVE) mg/dL Influenza Type A Ag (NEGATIVE) Influenza Type B Ag (NEGATIVE) RSV (PCR) (Negative) SARS-CoV-2 (PCR) (NEGATIVE) Slides for Path Review 03/24/22 03/24/22 03/24/22 Range/Units 17:46 17:00 16:30 WBC 8.4 (4.0-10.5) x10^3/uL RBC 3.83 L (4.1-5.6) x10^6/uL Hgb 12.4 L (12.5-18.0) g/dL Hct 38.3 L (42-50) % MCV 100.0 (78-100) fL MCH 32.4 H (26-32) pg MCHC 32.4 (32-36) g/dL RDW 14.2 H (11.5-14.0) % Plt Count 209 (150-450) x10^3/uL MPV 10.0 (7.5-11.0) fL Gran % 83.7 H (36.0-66.0) % Immature Gran % (Auto) 0.2 (0.00-0.4) % Nucleat RBC Rel Count 0.0 (0.00-0.1) % Eos # (Auto) 0.12 (0-0.5) x10^3/uL Immature Gran # (Auto) 0.02 (0.00-0.03) x10^3u/L Absolute Lymphs (auto) 0.56 L (1.0-4.6) x10^3/uL Absolute Monos (auto) 0.62 (0.0-1.3) x10^3/uL Absolute Nucleated RBC 0.00 (0.00-0.01) x10^3u/L Lymphocytes % 6.7 L (24.0-44.0) % Monocytes % 7.4 (0.0-12.0) % Eosinophils % 1.4 (0.00-5.0) % Basophils % 0.6 (0.0-0.4) % Absolute Granulocytes 7.00 H (1.4-6.9) x10^3/uL Basophils # 0.05 (0-0.4) x10^3/uL Sodium (137-145) mmol/L Potassium (3.5-5.1) mmol/L Chloride (98-107) mmol/L Carbon Dioxide (22-30) mmol/L Anion Gap (5-15) MEQ/L BUN (9-20) mg/dL Creatinine (0.66-1.25) mg/dL Estimated GFR ML/MIN Glucose (74-106) mg/dL POC Glucometer (74 to 106) mg/dL Lactic Acid (0.4-2.0) Calcium (8.4-10.2) mg/dL Magnesium (1.6-2.3) mg/dL Total Bilirubin (0.2-1.3) mg/dL AST (17-59) U/L ALT (0-50) U/L Alkaline Phosphatase (38-126) U/L Troponin I (0.000-0.034) ng/mL NT-Pro-B Natriuret Pep (0-1800) pg/mL Serum Total Protein (6.3-8.2) g/dL Albumin (3.5-5.0) g/dL Vitamin B12 (239-931) pg/mL Procalcitonin 0.050 (0.030-0.080) ng/mL TSH 3rd Generation (0.47-4.68) mIU/L Urinalys Dipstick Clnc Urine Color (YELLOW) Urine Appearance (CLEAR) Urine pH (5-6) Ur Specific [place] (1.005-1.025) POC Urine Protein Conf (Negative) Urine Ketones (NEGATIVE) Urine Nitrite (NEGATIVE) Urine Bilirubin (NEGATIVE) Urine Urobilinogen (0-1) mg/dL Urine Leukocytes (NEGATIVE) Urine WBC (Auto) (0-5) /HPF Urine RBC (Auto) (0-2) /HPF U Hyaline Cast (Auto) (0-2) /LPF U Epithel Cells (Auto) (FEW) /HPF Urine Bacteria (Auto) (NEGATIVE) /HPF Urine RBC (0-5) Juan Luis/ul Other Casts (Auto) (NEGATIVE) /LPF Urine Mucus (Auto) (NEGATIVE) /HPF Ur Culture Indicated? Urine Glucose (NEGATIVE) mg/dL Influenza Type A Ag NEGATIVE (NEGATIVE) Influenza Type B Ag NEGATIVE (NEGATIVE) RSV (PCR) NEGATIVE (Negative) SARS-CoV-2 (PCR) NEGATIVE (NEGATIVE) Slides for Path Review YES 03/24/22 03/24/22 03/24/22 Range/Units 16:22 16:00 16:00 WBC (4.0-10.5) x10^3/uL RBC (4.1-5.6) x10^6/uL Hgb (12.5-18.0) g/dL Hct (42-50) % MCV (78-100) fL MCH (26-32) pg MCHC (32-36) g/dL RDW (11.5-14.0) % Plt Count (150-450) x10^3/uL MPV (7.5-11.0) fL Gran % (36.0-66.0) % Immature Gran % (Auto) (0.00-0.4) % Nucleat RBC Rel Count (0.00-0.1) % Eos # (Auto) (0-0.5) x10^3/uL Immature Gran # (Auto) (0.00-0.03) x10^3u/L Absolute Lymphs (auto) (1.0-4.6) x10^3/uL Absolute Monos (auto) (0.0-1.3) x10^3/uL Absolute Nucleated RBC (0.00-0.01) x10^3u/L Lymphocytes % (24.0-44.0) % Monocytes % (0.0-12.0) % Eosinophils % (0.00-5.0) % Basophils % (0.0-0.4) % Absolute Granulocytes (1.4-6.9) x10^3/uL Basophils # (0-0.4) x10^3/uL Sodium 140 (137-145) mmol/L Potassium 4.0 (3.5-5.1) mmol/L Chloride 105 (98-107) mmol/L Carbon Dioxide 24 (22-30) mmol/L Anion Gap 14.7 (5-15) MEQ/L BUN 25 H (9-20) mg/dL Creatinine 1.10 (0.66-1.25) mg/dL Estimated GFR > 60.0 ML/MIN Glucose 131 H (74-106) mg/dL POC Glucometer (74 to 106) mg/dL Lactic Acid 2.3 H (0.4-2.0) Calcium 9.2 (8.4-10.2) mg/dL Magnesium 1.8 (1.6-2.3) mg/dL Total Bilirubin 1.40 H (0.2-1.3) mg/dL AST 52 (17-59) U/L ALT 37 (0-50) U/L Alkaline Phosphatase 93 (38-126) U/L Troponin I 0.071 H* (0.000-0.034) ng/mL NT-Pro-B Natriuret Pep 60627 H (0-1800) pg/mL Serum Total Protein 7.1 (6.3-8.2) g/dL Albumin 4.1 (3.5-5.0) g/dL Vitamin B12 (239-931) pg/mL Procalcitonin (0.030-0.080) ng/mL TSH 3rd Generation (0.47-4.68) mIU/L Urinalys Dipstick Clnc Urine Color (YELLOW) Urine Appearance (CLEAR) Urine pH (5-6) Ur Specific [place] (1.005-1.025) POC Urine Protein Conf (Negative) Urine Ketones (NEGATIVE) Urine Nitrite (NEGATIVE) Urine Bilirubin (NEGATIVE) Urine Urobilinogen (0-1) mg/dL Urine Leukocytes (NEGATIVE) Urine WBC (Auto) (0-5) /HPF Urine RBC (Auto) (0-2) /HPF U Hyaline Cast (Auto) (0-2) /LPF U Epithel Cells (Auto) (FEW) /HPF Urine Bacteria (Auto) (NEGATIVE) /HPF Urine RBC (0-5) Juan Luis/ul Other Casts (Auto) (NEGATIVE) /LPF Urine Mucus (Auto) (NEGATIVE) /HPF Ur Culture Indicated? Urine Glucose (NEGATIVE) mg/dL Influenza Type A Ag (NEGATIVE) Influenza Type B Ag (NEGATIVE) RSV (PCR) (Negative) SARS-CoV-2 (PCR) (NEGATIVE) Slides for Path Review - Progress Progress: re-examined Air Movement: fair Progress Note: 03/24/22 18:10 86 years old is evaluated for worsening shortness of breath. Patient is in mild to moderate distress on presentation although oxygen saturation around 92%, placed on 2 L oxygen and given DuoNeb along with dose of Lasix. Chest x-ray showed bilateral congestion with some effusion on the right side and cardiomegaly. Has normal white count, chemistries showed initial troponin of 0.071 but patient denies any chest pain. EKG showed atrial for flutter pattern with paced rhythm. Patient BNP is not 40,000's and I believe patient has CHF exacerbation. Procalcitonin is negative. Will not give him any antibiotics. We will continue with Lasix and discussed with Dr. Mittal, reviewed history, work-up and patient is excepted for admission. Blood Culture(s) Obtained: Yes Antibiotics given: No Discussed with : Maci Will see patient in: hospital (observation) Counseled pt/family regarding: lab results, diagnosis, rad results - Departure Departure Disposition: Observation Clinical Impression: CHF exacerbation Condition: Stable Critical Care Time: No
[2022-03-24] MEDS ORDERED: ROCEPHIN 2 Gm-D5w 50ML BAG** 2 G/50 ML IVPB IV ONE (16:29)
[2022-03-24] MEDS ORDERED: Zithromax 500 MG/ 250 ML NaCl Premix 500 MG/250 ML IVPB IV ONE (16:34)
[2022-03-24 16:35] LABS: Basophil (Absolute #) 0.05 x10^3/uL (0-0.4); Eosinophil % 1.4 % (0.00-5.0); Eosinophil (Absolute #) 0.12 x10^3/uL (0-0.5); Hematocrit 38.3 % (42-50); Hemoglobin 12.4 g/dL (12.5-18.0); Lymphocyte (Absolute #) 0.56 x10^3/uL (1.0-4.6); Lymphocytes % 6.7 % (24.0-44.0); Mean Corpuscular Hemoglobin 32.4 pg (26-32); Mean Corpuscular Hgb Concent. 32.4 g/dL (32-36); Monocyte (Absolute #) 0.62 x10^3/uL (0.0-1.3); Monocytes % 7.4 % (0.0-12.0); Neutrophil % 83.7 % (36.0-66.0); Platelet Count 209 x10^3/uL (150-450); Red Blood Count 3.83 x10^6/uL (4.1-5.6); Red Cell Distribution Width 14.2 % (11.5-14.0); White Blood Count 8.4 x10^3/uL (4.0-10.5)
[2022-03-24 17:07] LABS: ALBUMIN 4.1 g/dL (3.5-5.0); ALKALINE PHOSPHATASE 93 U/L (38-126); ANION GAP 14.7 MEQ/L (5-15); BLOOD UREA NITROGEN 25 mg/dL (9-20); CHLORIDE 105 mmol/L (98-107); Calcium 9.2 mg/dL (8.4-10.2); Carbon Dioxide 24 mmol/L (22-30); EST GLOMERULAR FILTRATION RATE > 60.0 ML/MIN; Glucose 131 mg/dL (74-106); MAGNESIUM 1.8 mg/dL (1.6-2.3); SGOT/AST 52 U/L (17-59); SGPT/ALT 37 U/L (0-50); SODIUM 140 mmol/L (137-145); Total Protein 7.1 g/dL (6.3-8.2)
[2022-03-24] MEDS ORDERED: BABY ASPIRIN 81 MG CHEW PO ONE (17:13)
[2022-03-24] MEDS ORDERED: Lasix 40 MG/4 ML IV ONE (17:14)
[2022-03-24] MEDS ORDERED: Lasix 40 MG/4 ML ONE (17:15)
[2022-03-24 17:23] LABS: NT PRO BNP 40900 pg/mL (0-1800)
[2022-03-24 18:30] LABS: INFLUENZA A NEGATIVE (NEGATIVE); INFLUENZA B NEGATIVE (NEGATIVE); RESPIRATORY SYNCTIAL VIRUS NEGATIVE (Negative); SARS-CoV-2 Xpert Express NEGATIVE (NEGATIVE)
[2022-03-24 18:42] LABS: Mucus SLIGHT /HPF (NEGATIVE); RBC 0-2 /HPF (0-2); WBC 0-2 /HPF (0-5)
[2022-03-24 18:46] LABS: Appearance CLEAR (CLEAR); Glucose NEGATIVE (NEGATIVE)
[2022-03-24 18:47] LABS: Bilirubin SMALL (NEGATIVE); Dipstick done @ ? MAIN LAB; Ketones NEGATIVE (NEGATIVE); Nitrite NEGATIVE (NEGATIVE); Ph 5.5 (5-6); Protein,Urine Dip 100 (Negative); RBC TRACE-INTACT Ery/ul (0-5); Specific Gravity >=1.030 (1.005-1.025); Urobilinogen 0.2 mg/dL (0-1)
[2022-03-24 18:48] LABS: Urine Cultured Indicated? NO
[2022-03-24 18:59] LABS: Slide Review 1 YES
[2022-03-24] MEDS ORDERED: TYLENOL 325 MG PO PRN (19:47)
[2022-03-24] MEDS ORDERED: Zofran 4 MG/2 ML VIAL IV PRN (19:47)
[2022-03-24] MEDS ORDERED: HUMALOG SQ PRN (19:47)
[2022-03-24] MEDS ORDERED: MORPHINE SULFATE 2 MG INJ IV PRN (19:47)
--- NOTE | 2022-03-24 19:58 | XRAY ---
Indication: Short of breath. Comparison: December 25, 2021 Portable chest again demonstrates cardiomegaly with small bibasilar effusions favoring cardiac decompensation/CHF. Superimposed pneumonia not completely excluded. Bony thorax intact again with osteopenia, degenerative changes, sternotomy wires/CABG, and right AICD.
[2022-03-24] MEDS ORDERED: Lasix 20 MG/2 ML IV ONE (20:30)
[2022-03-24] MEDS: DUONEB 0.5-3 MG/3 ml Neb IH SCH (21:00)
[2022-03-24] MEDS ORDERED: COREG 12.5 MG PO ONE (22:16)
[2022-03-24] MEDS ORDERED: ELIQUIS 2.5 MG TABLET PO ONE (22:16)
[2022-03-24] MEDS ORDERED: FOLATE 1 MG PO ONE (22:17)
[2022-03-24] MEDS ORDERED: Nitrostat 0.4 MG Tablet SL PRN (22:17)
[2022-03-24] MEDS ORDERED: COREG 12.5 MG ONE (22:26)
[2022-03-24] MEDS ORDERED: FOLATE 1 MG ONE (22:26)
[2022-03-24] MEDS ORDERED: ELIQUIS 2.5 MG TABLET ONE (22:26)
[2022-03-25] MEDS: DUONEB 0.5-3 MG/3 ml Neb IH SCH ×4 (00:10→19:52)
[2022-03-25 05:24] LABS: Absolute Neutrophil Ct (ANC) 4.23 x10^3/uL (1.4-6.9); Basophil (Absolute #) 0.01 x10^3/uL (0-0.4); Eosinophil (Absolute #) 0 x10^3/uL (0-0.5); Hematocrit 39.5 % (42-50); Hemoglobin 12.6 g/dL (12.5-18.0); Lymphocyte (Absolute #) 0.24 x10^3/uL (1.0-4.6); Lymphocytes % 5.3 % (24.0-44.0); Mean Cell Volume 99.5 fL (78-100); Mean Corpuscular Hemoglobin 31.7 pg (26-32); Mean Corpuscular Hgb Concent. 31.9 g/dL (32-36); Mean Platelet Volume 10.3 fL (7.5-11.0); Monocyte (Absolute #) 0.04 x10^3/uL (0.0-1.3); Monocytes % 0.9 % (0.0-12.0); Neutrophil % 93.2 % (36.0-66.0); Platelet Count 174 x10^3/uL (150-450); Red Blood Count 3.97 x10^6/uL (4.1-5.6); Red Cell Distribution Width 13.9 % (11.5-14.0); White Blood Count 4.5 x10^3/uL (4.0-10.5)
[2022-03-25 05:54] LABS: ALBUMIN 3.9 g/dL (3.5-5.0); ALKALINE PHOSPHATASE 86 U/L (38-126); ANION GAP 11.7 MEQ/L (5-15); BLOOD UREA NITROGEN 27 mg/dL (9-20); CHLORIDE 103 mmol/L (98-107); Calcium 8.9 mg/dL (8.4-10.2); Carbon Dioxide 29 mmol/L (22-30); Creatinine 1 1.15 mg/dL (0.66-1.25); EST GLOMERULAR FILTRATION RATE > 60.0 ML/MIN; Glucose 139 mg/dL (74-106); Potassium 3.5 mmol/L (3.5-5.1); SGOT/AST 50 U/L (17-59); SGPT/ALT 39 U/L (0-50); SODIUM 140 mmol/L (137-145); Total Protein 6.7 g/dL (6.3-8.2)
[2022-03-25 07:29] LABS: Slide Review 1 YES
[2022-03-25] MEDS: PROTONIX 40 MG IV IV SCH (09:20)
[2022-03-25] MEDS ORDERED: xanAX 0.25 MG PO PRN (09:42)
[2022-03-25] MEDS ORDERED: Nitrostat 0.4 MG Tablet SL SCH (09:45)
[2022-03-25] MEDS ORDERED: NON-FORMULARY ITEM (Apixaban [Eliquis] 5 MG Tablet) PO SCH (10:00)
[2022-03-25] MEDS: ROCEPHIN 1 Gm-D5w 50 ml Bag** 1 G/50 ML IVPB IV SCH (10:00)
[2022-03-25] MEDS ORDERED: NON-FORMULARY ITEM (Carvedilol [Carvedilol] 25 MG Tablet) PO SCH (10:00)
[2022-03-25] MEDS: ELIQUIS 2.5 MG TABLET PO SCH ×2 (10:03→21:15)
[2022-03-25] MEDS: COREG 12.5 MG PO SCH ×2 (10:03→21:15)
[2022-03-25] MEDS: FOLATE 1 MG PO SCH ×2 (10:04→21:15)
[2022-03-25] MEDS: K-LYTE PO SCH (10:24)
[2022-03-25] MEDS: Lasix 40 MG/4 ML IV SCH (10:24)
[2022-03-25] MEDS: Zithromax 500 MG/ 250 ML NaCl Premix 500 MG/250 ML IVPB IV SCH (10:24)
[2022-03-25] MEDS: solu-MEDROL 80 MG, Sterile H2O 10 ml 2 ML IV SCH ×4 (10:25→21:16)
[2022-03-25] MEDS: JARDIANCE PO SCH (10:27)
[2022-03-25] MEDS: SYNTHROID 88 MCG PO SCH (10:27)
--- NOTE | 2022-03-25 10:58 | PCM.HP ---
History of Present Illness - Chief Complaint Chief Complaint: Acute CHF exacerbation History of Present Illness: is an 86 year old male of Dr Burdick's admitted through ER to [facility] for exacerbation CHF and pneumonia. Patient lives at home with his and has mild demetia,short term memory impairment. [place] is Dr Hughes last visit DEC 2021, ECHO NOVEMBER 2021 ejection fraction = 10-15%. Hx CABG,pacemaker/defibrillator. - Review of Systems Constitutional: Fever, Chills, Fatigue, Weakness Eyes: No Symptoms Ears, Nose, & Throat: No Symptoms Respiratory: Cough, Short Of Breath, Wheezing Cardiac: Edema (denies chest pain) Abdominal/Gastrointestinal: No Symptoms Genitourinary Symptoms: No Symptoms Musculoskeletal: No Symptoms Skin: No Symptoms Neurological: No Symptoms Psychological: Memory Loss (chronic short term memory loss) Endocrine: No Symptoms Hematologic/Lymphatic: No Symptoms Medications & Allergies Home Medications: Home Medication List Apixaban [Eliquis] 5 mg PO BID 11/08/18 [History Confirmed 03/24/22] carvediloL [Carvedilol] 25 mg PO BID 11/08/18 [History Confirmed 03/24/22] Folic Acid 1 mg [Folate 1 mg] 1 mg PO BID 01/04/20 [History Confirmed 03/24/22] Nitroglycerin 0.4 mg SL UD 01/04/20 [History Confirmed 03/24/22] ALPRAZolam [Alprazolam] 1 tab PO DAILY 03/24/22 [History Confirmed 03/24/22] Empagliflozin [Jardiance] 1 tab PO DAILY 03/24/22 [History Confirmed 03/24/22] Furosemide [Lasix] 1 tab PO DAILY 03/24/22 [History Confirmed 03/24/22] Levothyroxine Sodium [Euthyrox] 1 tab PO DAILY 03/24/22 [History Confirmed 03/24/22] Benzonatate 100 mg PO TID PRN #50 cap 03/27/22 [Rx] Levofloxacin [Levofloxacin 500 MG Tablet] 500 mg PO DAILY #5 tablet 03/27/22 [Rx] Methylprednisolone Packet [Medrol Dosepack] 1 mg PO DAILY #1 packet 03/27/22 [Rx] Allergies/Adverse Reactions: Allergies Allergy/AdvReac Type Severity Reaction Status Date / Time rosuvastatin calcium Allergy Verified 03/24/22 20:05 [From Crestor] - Past Medical History Past Medical History: Yes Neurological History: No Pertinent History ENT History: Cataracts Cardiac History: Arrhythmia, Congestive Heart Failure, High Cholesterol, Hypertension, Myocardial Infarction (CT) Respiratory History: CHF, COPD Endocrine Medical History: Hypoglycemia, Hypothyroidism Musculoskelatal History: Arthritis GI Medical History: No Pertinent History History: Renal Disease Pyscho-Social History: No Pertinent History Male Reproductive Disorders: No Pertinent History Comment: A-fib - Past Surgical History Past Surgical History: Yes Neuro Surgical History: No Pertinent History Cardiac History: CABG, Cardiac Catheterization, Cardiac Stent, Internal Defibrillator, Pacemaker Respiratory Surgery: No Pertinent History GI Surgical History: Hernia Repair Genitourinary Surgical Hx: No Pertinent History Musculskeletal Surgical Hx: No Pertinent History Male Surgical History: No Pertinent History Other Surgical History: cataracts,QUAD BIPASS, hernia. x three - Social History Smoking Status: Former smoker Exposure to second hand smoke: No Alcohol: None Drug Use: none - Physical Exam Vital Signs: Vital Signs - 24 hr Temp Pulse Resp BP Pulse Ox 03/25/22 07:41 98.0 F 88 20 158/92 97 03/25/22 05:36 97 H 18 96 03/25/22 04:00 98.0 F 95 H 19 138/87 97 03/25/22 00:15 93 H 22 95 03/24/22 23:41 97.6 F 91 H 22 156/92 98 03/24/22 21:32 91 H 20 98 03/24/22 20:15 97.8 F 80 21 194/94 97 03/24/22 19:00 88 20 168/112 98 03/24/22 18:13 95 03/24/22 17:35 84 20 149/109 97 03/24/22 16:36 100 H 20 170/106 98 03/24/22 16:13 98 03/24/22 15:49 97.7 F 89 30 H 178/106 95 General Appearance: no apparent distress Neurologic Exam: alert (oriented to person and place and month thinks year is 1991) Eye Exam: eyes nml inspection Ears, Nose, Throat Exam: moist mucous membranes, other Neck Exam: normal inspection Respiratory Exam: diminished breath sounds, wheezing (fine eew mid low bilat) Cardiovascular Exam: irregular (pulse 80-90), other (device right chest) Gastrointestinal/Abdomen Exam: soft, normal bowel sounds (nontender) Rectal Exam: not done Back Exam: normal inspection Extremity Exam: normal inspection (no pitting edema) Skin Exam: normal color, warm, dry Results - Labs Lab/Micro Results: Lab Results-Last 24 Hours 03/24/22 03/24/22 03/24/22 Range/Units 16:00 16:00 16:22 WBC (4.0-10.5) x10^3/uL RBC (4.1-5.6) x10^6/uL Hgb (12.5-18.0) g/dL Hct (42-50) % MCV (78-100) fL MCH (26-32) pg MCHC (32-36) g/dL RDW (11.5-14.0) % Plt Count (150-450) x10^3/uL MPV (7.5-11.0) fL Gran % (36.0-66.0) % Immature Gran % (Auto) (0.00-0.4) % Nucleat RBC Rel Count (0.00-0.1) % Eos # (Auto) (0-0.5) x10^3/uL Immature Gran # (Auto) (0.00-0.03) x10^3u/L Absolute Lymphs (auto) (1.0-4.6) x10^3/uL Absolute Monos (auto) (0.0-1.3) x10^3/uL Absolute Nucleated RBC (0.00-0.01) x10^3u/L Lymphocytes % (24.0-44.0) % Monocytes % (0.0-12.0) % Eosinophils % (0.00-5.0) % Basophils % (0.0-0.4) % Absolute Granulocytes (1.4-6.9) x10^3/uL Basophils # (0-0.4) x10^3/uL Sodium 140 (137-145) mmol/L Potassium 4.0 (3.5-5.1) mmol/L Chloride 105 (98-107) mmol/L Carbon Dioxide 24 (22-30) mmol/L Anion Gap 14.7 (5-15) MEQ/L BUN 25 H (9-20) mg/dL Creatinine 1.10 (0.66-1.25) mg/dL Estimated GFR > 60.0 ML/MIN Glucose 131 H (74-106) mg/dL POC Glucometer (74 to 106) mg/dL Lactic Acid 2.3 H (0.4-2.0) Calcium 9.2 (8.4-10.2) mg/dL Magnesium 1.8 (1.6-2.3) mg/dL Total Bilirubin 1.40 H (0.2-1.3) mg/dL AST 52 (17-59) U/L ALT 37 (0-50) U/L Alkaline Phosphatase 93 (38-126) U/L Troponin I 0.071 H* (0.000-0.034) ng/mL NT-Pro-B Natriuret Pep 53842 H (0-1800) pg/mL Serum Total Protein 7.1 (6.3-8.2) g/dL Albumin 4.1 (3.5-5.0) g/dL Procalcitonin (0.030-0.080) ng/mL Urinalys Dipstick Clnc Urine Color (YELLOW) Urine Appearance (CLEAR) Urine pH (5-6) Ur Specific [place] (1.005-1.025) POC Urine Protein Conf (Negative) Urine Ketones (NEGATIVE) Urine Nitrite (NEGATIVE) Urine Bilirubin (NEGATIVE) Urine Urobilinogen (0-1) mg/dL Urine Leukocytes (NEGATIVE) Urine WBC (Auto) (0-5) /HPF Urine RBC (Auto) (0-2) /HPF U Hyaline Cast (Auto) (0-2) /LPF U Epithel Cells (Auto) (FEW) /HPF Urine Bacteria (Auto) (NEGATIVE) /HPF Urine RBC (0-5) Juan Luis/ul Other Casts (Auto) (NEGATIVE) /LPF Urine Mucus (Auto) (NEGATIVE) /HPF Ur Culture Indicated? Urine Glucose (NEGATIVE) mg/dL Influenza Type A Ag (NEGATIVE) Influenza Type B Ag (NEGATIVE) RSV (PCR) (Negative) SARS-CoV-2 (PCR) (NEGATIVE) Slides for Path Review 03/24/22 03/24/22 03/24/22 Range/Units 16:30 17:00 17:46 WBC 8.4 (4.0-10.5) x10^3/uL RBC 3.83 L (4.1-5.6) x10^6/uL Hgb 12.4 L (12.5-18.0) g/dL Hct 38.3 L (42-50) % MCV 100.0 (78-100) fL MCH 32.4 H (26-32) pg MCHC 32.4 (32-36) g/dL RDW 14.2 H (11.5-14.0) % Plt Count 209 (150-450) x10^3/uL MPV 10.0 (7.5-11.0) fL Gran % 83.7 H (36.0-66.0) % Immature Gran % (Auto) 0.2 (0.00-0.4) % Nucleat RBC Rel Count 0.0 (0.00-0.1) % Eos # (Auto) 0.12 (0-0.5) x10^3/uL Immature Gran # (Auto) 0.02 (0.00-0.03) x10^3u/L Absolute Lymphs (auto) 0.56 L (1.0-4.6) x10^3/uL Absolute Monos (auto) 0.62 (0.0-1.3) x10^3/uL Absolute Nucleated RBC 0.00 (0.00-0.01) x10^3u/L Lymphocytes % 6.7 L (24.0-44.0) % Monocytes % 7.4 (0.0-12.0) % Eosinophils % 1.4 (0.00-5.0) % Basophils % 0.6 (0.0-0.4) % Absolute Granulocytes 7.00 H (1.4-6.9) x10^3/uL Basophils # 0.05 (0-0.4) x10^3/uL Sodium (137-145) mmol/L Potassium (3.5-5.1) mmol/L Chloride (98-107) mmol/L Carbon Dioxide (22-30) mmol/L Anion Gap (5-15) MEQ/L BUN (9-20) mg/dL Creatinine (0.66-1.25) mg/dL Estimated GFR ML/MIN Glucose (74-106) mg/dL POC Glucometer (74 to 106) mg/dL Lactic Acid (0.4-2.0) Calcium (8.4-10.2) mg/dL Magnesium (1.6-2.3) mg/dL Total Bilirubin (0.2-1.3) mg/dL AST (17-59) U/L ALT (0-50) U/L Alkaline Phosphatase (38-126) U/L Troponin I (0.000-0.034) ng/mL NT-Pro-B Natriuret Pep (0-1800) pg/mL Serum Total Protein (6.3-8.2) g/dL Albumin (3.5-5.0) g/dL Procalcitonin 0.050 (0.030-0.080) ng/mL Urinalys Dipstick Clnc Urine Color (YELLOW) Urine Appearance (CLEAR) Urine pH (5-6) Ur Specific [place] (1.005-1.025) POC Urine Protein Conf (Negative) Urine Ketones (NEGATIVE) Urine Nitrite (NEGATIVE) Urine Bilirubin (NEGATIVE) Urine Urobilinogen (0-1) mg/dL Urine Leukocytes (NEGATIVE) Urine WBC (Auto) (0-5) /HPF Urine RBC (Auto) (0-2) /HPF U Hyaline Cast (Auto) (0-2) /LPF U Epithel Cells (Auto) (FEW) /HPF Urine Bacteria (Auto) (NEGATIVE) /HPF Urine RBC (0-5) Juan Luis/ul Other Casts (Auto) (NEGATIVE) /LPF Urine Mucus (Auto) (NEGATIVE) /HPF Ur Culture Indicated? Urine Glucose (NEGATIVE) mg/dL Influenza Type A Ag NEGATIVE (NEGATIVE) Influenza Type B Ag NEGATIVE (NEGATIVE) RSV (PCR) NEGATIVE (Negative) SARS-CoV-2 (PCR) NEGATIVE (NEGATIVE) Slides for Path Review YES 03/24/22 03/24/22 03/24/22 Range/Units 18:06 18:25 20:19 WBC (4.0-10.5) x10^3/uL RBC (4.1-5.6) x10^6/uL Hgb (12.5-18.0) g/dL Hct (42-50) % MCV (78-100) fL MCH (26-32) pg MCHC (32-36) g/dL RDW (11.5-14.0) % Plt Count (150-450) x10^3/uL MPV (7.5-11.0) fL Gran % (36.0-66.0) % Immature Gran % (Auto) (0.00-0.4) % Nucleat RBC Rel Count (0.00-0.1) % Eos # (Auto) (0-0.5) x10^3/uL Immature Gran # (Auto) (0.00-0.03) x10^3u/L Absolute Lymphs (auto) (1.0-4.6) x10^3/uL Absolute Monos (auto) (0.0-1.3) x10^3/uL Absolute Nucleated RBC (0.00-0.01) x10^3u/L Lymphocytes % (24.0-44.0) % Monocytes % (0.0-12.0) % Eosinophils % (0.00-5.0) % Basophils % (0.0-0.4) % Absolute Granulocytes (1.4-6.9) x10^3/uL Basophils # (0-0.4) x10^3/uL Sodium (137-145) mmol/L Potassium (3.5-5.1) mmol/L Chloride (98-107) mmol/L Carbon Dioxide (22-30) mmol/L Anion Gap (5-15) MEQ/L BUN (9-20) mg/dL Creatinine (0.66-1.25) mg/dL Estimated GFR ML/MIN Glucose (74-106) mg/dL POC Glucometer (74 to 106) mg/dL Lactic Acid 1.6 (0.4-2.0) Calcium (8.4-10.2) mg/dL Magnesium (1.6-2.3) mg/dL Total Bilirubin (0.2-1.3) mg/dL AST (17-59) U/L ALT (0-50) U/L Alkaline Phosphatase (38-126) U/L Troponin I 0.069 H* (0.000-0.034) ng/mL NT-Pro-B Natriuret Pep (0-1800) pg/mL Serum Total Protein (6.3-8.2) g/dL Albumin (3.5-5.0) g/dL Procalcitonin (0.030-0.080) ng/mL Urinalys Dipstick Clnc MAIN LAB Urine Color YELLOW (YELLOW) Urine Appearance CLEAR (CLEAR) Urine pH 5.5 (5-6) Ur Specific [place] >=1.030 (1.005-1.025) POC Urine Protein Conf 100 (Negative) Urine Ketones NEGATIVE (NEGATIVE) Urine Nitrite NEGATIVE (NEGATIVE) Urine Bilirubin SMALL (NEGATIVE) Urine Urobilinogen 0.2 (0-1) mg/dL Urine Leukocytes NEGATIVE (NEGATIVE) Urine WBC (Auto) 0-2 (0-5) /HPF Urine RBC (Auto) 0-2 (0-2) /HPF U Hyaline Cast (Auto) 3-5 (0-2) /LPF U Epithel Cells (Auto) NONE (FEW) /HPF Urine Bacteria (Auto) NONE (NEGATIVE) /HPF Urine RBC TRACE-INTACT (0-5) Juan Luis/ul Other Casts (Auto) NEGATIVE (NEGATIVE) /LPF Urine Mucus (Auto) SLIGHT (NEGATIVE) /HPF Ur Culture Indicated? NO Urine Glucose NEGATIVE (NEGATIVE) mg/dL Influenza Type A Ag (NEGATIVE) Influenza Type B Ag (NEGATIVE) RSV (PCR) (Negative) SARS-CoV-2 (PCR) (NEGATIVE) Slides for Path Review 03/24/22 03/25/22 03/25/22 Range/Units 21:11 00:42 04:50 WBC 4.5 (4.0-10.5) x10^3/uL RBC 3.97 L (4.1-5.6) x10^6/uL Hgb 12.6 (12.5-18.0) g/dL Hct 39.5 L (42-50) % MCV 99.5 (78-100) fL MCH 31.7 (26-32) pg MCHC 31.9 L (32-36) g/dL RDW 13.9 (11.5-14.0) % Plt Count 174 (150-450) x10^3/uL MPV 10.3 (7.5-11.0) fL Gran % 93.2 H (36.0-66.0) % Immature Gran % (Auto) 0.4 (0.00-0.4) % Nucleat RBC Rel Count 0.0 (0.00-0.1) % Eos # (Auto) 0 (0-0.5) x10^3/uL Immature Gran # (Auto) 0.02 (0.00-0.03) x10^3u/L Absolute Lymphs (auto) 0.24 L (1.0-4.6) x10^3/uL Absolute Monos (auto) 0.04 (0.0-1.3) x10^3/uL Absolute Nucleated RBC 0.00 (0.00-0.01) x10^3u/L Lymphocytes % 5.3 L (24.0-44.0) % Monocytes % 0.9 (0.0-12.0) % Eosinophils % 0.0 (0.00-5.0) % Basophils % 0.2 (0.0-0.4) % Absolute Granulocytes 4.23 (1.4-6.9) x10^3/uL Basophils # 0.01 (0-0.4) x10^3/uL Sodium (137-145) mmol/L Potassium (3.5-5.1) mmol/L Chloride (98-107) mmol/L Carbon Dioxide (22-30) mmol/L Anion Gap (5-15) MEQ/L BUN (9-20) mg/dL Creatinine (0.66-1.25) mg/dL Estimated GFR ML/MIN Glucose (74-106) mg/dL POC Glucometer 131 H (74 to 106) mg/dL Lactic Acid (0.4-2.0) Calcium (8.4-10.2) mg/dL Magnesium (1.6-2.3) mg/dL Total Bilirubin (0.2-1.3) mg/dL AST (17-59) U/L ALT (0-50) U/L Alkaline Phosphatase (38-126) U/L Troponin I 0.059 H* (0.000-0.034) ng/mL NT-Pro-B Natriuret Pep (0-1800) pg/mL Serum Total Protein (6.3-8.2) g/dL Albumin (3.5-5.0) g/dL Procalcitonin (0.030-0.080) ng/mL Urinalys Dipstick Clnc Urine Color (YELLOW) Urine Appearance (CLEAR) Urine pH (5-6) Ur Specific [place] (1.005-1.025) POC Urine Protein Conf (Negative) Urine Ketones (NEGATIVE) Urine Nitrite (NEGATIVE) Urine Bilirubin (NEGATIVE) Urine Urobilinogen (0-1) mg/dL Urine Leukocytes (NEGATIVE) Urine WBC (Auto) (0-5) /HPF Urine RBC (Auto) (0-2) /HPF U Hyaline Cast (Auto) (0-2) /LPF U Epithel Cells (Auto) (FEW) /HPF Urine Bacteria (Auto) (NEGATIVE) /HPF Urine RBC (0-5) Juan Luis/ul Other Casts (Auto) (NEGATIVE) /LPF Urine Mucus (Auto) (NEGATIVE) /HPF Ur Culture Indicated? Urine Glucose (NEGATIVE) mg/dL Influenza Type A Ag (NEGATIVE) Influenza Type B Ag (NEGATIVE) RSV (PCR) (Negative) SARS-CoV-2 (PCR) (NEGATIVE) Slides for Path Review YES 03/25/22 03/25/22 Range/Units 04:50 07:23 WBC (4.0-10.5) x10^3/uL RBC (4.1-5.6) x10^6/uL Hgb (12.5-18.0) g/dL Hct (42-50) % MCV (78-100) fL MCH (26-32) pg MCHC (32-36) g/dL RDW (11.5-14.0) % Plt Count (150-450) x10^3/uL MPV (7.5-11.0) fL Gran % (36.0-66.0) % Immature Gran % (Auto) (0.00-0.4) % Nucleat RBC Rel Count (0.00-0.1) % Eos # (Auto) (0-0.5) x10^3/uL Immature Gran # (Auto) (0.00-0.03) x10^3u/L Absolute Lymphs (auto) (1.0-4.6) x10^3/uL Absolute Monos (auto) (0.0-1.3) x10^3/uL Absolute Nucleated RBC (0.00-0.01) x10^3u/L Lymphocytes % (24.0-44.0) % Monocytes % (0.0-12.0) % Eosinophils % (0.00-5.0) % Basophils % (0.0-0.4) % Absolute Granulocytes (1.4-6.9) x10^3/uL Basophils # (0-0.4) x10^3/uL Sodium 140 (137-145) mmol/L Potassium 3.5 (3.5-5.1) mmol/L Chloride 103 (98-107) mmol/L Carbon Dioxide 29 (22-30) mmol/L Anion Gap 11.7 (5-15) MEQ/L BUN 27 H (9-20) mg/dL Creatinine 1.15 (0.66-1.25) mg/dL Estimated GFR > 60.0 ML/MIN Glucose 139 H (74-106) mg/dL POC Glucometer 138 H (74 to 106) mg/dL Lactic Acid (0.4-2.0) Calcium 8.9 (8.4-10.2) mg/dL Magnesium (1.6-2.3) mg/dL Total Bilirubin 0.80 (0.2-1.3) mg/dL AST 50 (17-59) U/L ALT 39 (0-50) U/L Alkaline Phosphatase 86 (38-126) U/L Troponin I (0.000-0.034) ng/mL NT-Pro-B Natriuret Pep (0-1800) pg/mL Serum Total Protein 6.7 (6.3-8.2) g/dL Albumin 3.9 (3.5-5.0) g/dL Procalcitonin (0.030-0.080) ng/mL Urinalys Dipstick Clnc Urine Color (YELLOW) Urine Appearance (CLEAR) Urine pH (5-6) Ur Specific [place] (1.005-1.025) POC Urine Protein Conf (Negative) Urine Ketones (NEGATIVE) Urine Nitrite (NEGATIVE) Urine Bilirubin (NEGATIVE) Urine Urobilinogen (0-1) mg/dL Urine Leukocytes (NEGATIVE) Urine WBC (Auto) (0-5) /HPF Urine RBC (Auto) (0-2) /HPF U Hyaline Cast (Auto) (0-2) /LPF U Epithel Cells (Auto) (FEW) /HPF Urine Bacteria (Auto) (NEGATIVE) /HPF Urine RBC (0-5) Juan Luis/ul Other Casts (Auto) (NEGATIVE) /LPF Urine Mucus (Auto) (NEGATIVE) /HPF Ur Culture Indicated? Urine Glucose (NEGATIVE) mg/dL Influenza Type A Ag (NEGATIVE) Influenza Type B Ag (NEGATIVE) RSV (PCR) (Negative) SARS-CoV-2 (PCR) (NEGATIVE) Slides for Path Review Accuchecks Date 03/25/22 Time 07:40 - Radiology Impressions Radiology Exams & Impressions: Radiology Procedures Category Date Time Status CHEST 1 VIEW (PORTABLE) Stat Exams 03/24/22 16:06 Completed - Other Procedures and Tests Respiratory Therapy 03/24/22 19:47 Oxygen Nasal Cannula 2 lpm Assessment/Plan (1) CHF exacerbation Current Visit: Yes Status: Acute Assessment & Plan: acute on chronic,Ejection fraction NOVEMBER 2021 was 10-15%,diureis IV lasix Code(s): I50.9 - HEART FAILURE, UNSPECIFIED (2) Elevated troponin level Current Visit: Yes Status: Chronic Assessment & Plan: due to CHF strain,no chest pain Code(s): R77.8 - OTHER SPECIFIED ABNORMALITIES OF PLASMA PROTEINS (3) Pneumonia Current Visit: Yes Status: Suspected Assessment & Plan: COPD exacerbation vs pneumonia,started on IV Solumedrol and IV Rocephin,Zithromax Code(s): J18.9 - PNEUMONIA, UNSPECIFIED ORGANISM (4) Chronic a-fib Current Visit: Yes Status: Chronic Assessment & Plan: rate controlled,monitor Code(s): I48.20 - CHRONIC ATRIAL FIBRILLATION, UNSPECIFIED
[2022-03-25 16:48] LABS: TSH, 3RD Generation 0.699 mIU/L (0.47-4.68)
[2022-03-25] MEDS ORDERED: COREG 12.5 MG PO ONE (22:16)
[2022-03-25] MEDS ORDERED: ELIQUIS 2.5 MG TABLET PO ONE (22:16)
[2022-03-25] MEDS ORDERED: FOLATE 1 MG PO ONE (22:17)
[2022-03-26] MEDS: DUONEB 0.5-3 MG/3 ml Neb IH SCH ×2 (00:25→07:08)
[2022-03-26] MEDS: ELIQUIS 2.5 MG TABLET PO SCH ×2 (09:45→21:06)
[2022-03-26] MEDS: FOLATE 1 MG PO SCH ×2 (09:45→21:06)
[2022-03-26] MEDS: JARDIANCE PO SCH (09:46)
[2022-03-26] MEDS: K-LYTE PO SCH (09:46)
[2022-03-26] MEDS: COREG 12.5 MG PO SCH ×2 (09:46→21:06)
[2022-03-26] MEDS: SYNTHROID 88 MCG PO SCH (09:46)
[2022-03-26] MEDS: ROCEPHIN 1 Gm-D5w 50 ml Bag** 1 G/50 ML IVPB IV SCH (09:55)
[2022-03-26] MEDS: PROTONIX 40 MG IV IV SCH (09:58)
[2022-03-26] MEDS: Lasix 40 MG/4 ML IV SCH ×2 (09:59→17:32)
[2022-03-26] MEDS: solu-MEDROL 80 MG, Sterile H2O 10 ml 2 ML IV SCH ×4 (10:03→21:06)
[2022-03-26] MEDS: Zithromax 500 MG/ 250 ML NaCl Premix 500 MG/250 ML IVPB IV SCH (11:14)
[2022-03-26] MEDS ORDERED: DUONEB 0.5-3 MG/3 ml Neb IH PRN (13:04)
--- NOTE | 2022-03-26 13:10 | PCM.NOTE ---
Date and Time: 03/26/22 1307 Subjective Assessment: Patient is comfortable propped up in bed asking to go home "I was hoping to go home today". BNP has improved on IV Lasix 40mg . Will ask Cardiology consult ,Dr Hughes is patient's Direct Care Supervisor if not continuing to improve, otherwise will discharge home in AM if no set backs. Objective Exam Neurologic Exam: alert (orient toe person place and month), cooperative, normal mood/affect Skin Exam: normal color, warm, dry Ears, Nose, Throat Exam: normal ENT inspection Neck Exam: normal inspection Respiratory Exam: other (improved aeration to mid lungs bilaterally,eew right base) Cardiovascular Exam: irregular (rate 80s) Extremity Exam: normal inspection (no pitting edema) OBJECTIVE DATA Vital Signs: Vital Signs - 24 hr Temp Pulse Resp BP Pulse Ox 03/26/22 13:02 76 20 95 03/26/22 12:00 97.9 F 96 H 18 147/66 96 03/26/22 07:48 97.7 F 97 H 16 129/76 95 03/26/22 07:33 95 03/26/22 07:10 101 H 18 98 03/26/22 04:00 97.7 F 91 H 17 141/81 97 03/26/22 00:28 84 20 92 L 03/25/22 22:54 97.8 F 91 H 17 125/78 96 03/25/22 19:54 98.0 F 91 H 17 170/88 95 03/25/22 19:52 96 H 20 97 03/25/22 16:00 97.6 F 86 19 133/67 93 L 03/25/22 13:43 81 20 95 Pain Assessment - Last Documented Pain Intensity 4 Intake and Output: Intake & Output 03/24/22 03/25/22 03/26/22 03/27/22 11:59 11:59 11:59 11:59 Intake Total 600 710 Output Total 500 1375 Balance 100 -665 Weight 65.9 kg 63.6 kg Lab Results: Lab Results-Last 24 Hours 03/25/22 03/25/22 03/25/22 Range/Units 04:50 16:24 21:12 POC Glucometer 156 H 121 H (74 to 106) mg/dL Hemoglobin A1c (4.5-6.0) % NT-Pro-B Natriuret Pep 68513 H (0-1800) pg/mL Vitamin B12 801 (239-931) pg/mL TSH 3rd Generation 0.699 (0.47-4.68) mIU/L 03/26/22 03/26/22 03/26/22 Range/Units 07:54 10:03 11:37 POC Glucometer 135 H 194 H (74 to 106) mg/dL Hemoglobin A1c 5.50 (4.5-6.0) % NT-Pro-B Natriuret Pep (0-1800) pg/mL Vitamin B12 (239-931) pg/mL TSH 3rd Generation (0.47-4.68) mIU/L Radiology Exams: Radiology Procedures Category Date Time Status CHEST 1 VIEW (PORTABLE) Stat Exams 03/24/22 16:06 Completed Multi-Disciplinary Progress Notes: Multi-Disciplinary Progress Notes 03/26/22 09:48 Case Management Note by Maddie Werner PLANS TO STILL RETURN HOME WITH CURRENT PLAN OF HHC, SPOUSE, AND FAMILY TO ASSIST IN CARE. WILL CONTINUE TO TRY TO WEAN OXYGEN, IF NOT ABLE WILL SET UP HOME O2 FOR D/C. . Initialized on 03/26/22 09:48 - END OF NOTE Assessment/Plan (1) CHF exacerbation Current Visit: Yes Status: Acute Assessment & Plan: improved BNP chronically elevated but down from 45,300 to 26,200. Ej Fraction is 10-15% per NOVEMBER 2021 ECHO Code(s): I50.9 - HEART FAILURE, UNSPECIFIED (2) Pneumonia Current Visit: Yes Status: Suspected Assessment & Plan: IV rocephin and Zithromax,elevated WBC on Steroids-afebrile Code(s): J18.9 - PNEUMONIA, UNSPECIFIED ORGANISM
[2022-03-26 14:04] LABS: Absolute Neutrophil Ct (ANC) 13.48 x10^3/uL (1.4-6.9); Basophil (Absolute #) 0.01 x10^3/uL (0-0.4); Eosinophil (Absolute #) 0 x10^3/uL (0-0.5); Hematocrit 40.5 % (42-50); Lymphocyte (Absolute #) 0.21 x10^3/uL (1.0-4.6); Lymphocytes % 1.5 % (24.0-44.0); Mean Corpuscular Hemoglobin 32.4 pg (26-32); Mean Corpuscular Hgb Concent. 32.1 g/dL (32-36); Mean Platelet Volume 10.2 fL (7.5-11.0); Monocyte (Absolute #) 0.22 x10^3/uL (0.0-1.3); Monocytes % 1.6 % (0.0-12.0); Neutrophil % 96.3 % (36.0-66.0); Platelet Count 221 x10^3/uL (150-450); Red Blood Count 4.01 x10^6/uL (4.1-5.6); Red Cell Distribution Width 14.2 % (11.5-14.0)
[2022-03-26 14:26] LABS: ANION GAP 13.3 MEQ/L (5-15); Calcium 8.8 mg/dL (8.4-10.2); Creatinine 1 1.35 mg/dL (0.66-1.25); Potassium 3.5 mmol/L (3.5-5.1)
[2022-03-27 07:06] VITALS: PULSE 77; O2SAT 95
[2022-03-27 07:26] VITALS: BP 143/71
[2022-03-27] MEDS: Lasix 40 MG/4 ML IV SCH (09:55)
[2022-03-27] MEDS: K-LYTE PO SCH (09:55)
[2022-03-27] MEDS: PROTONIX 40 MG IV IV SCH (09:56)
[2022-03-27] MEDS: solu-MEDROL 80 MG, Sterile H2O 10 ml 2 ML IV SCH ×2 (09:57)
[2022-03-27] MEDS: COREG 12.5 MG PO SCH (09:57)
[2022-03-27] MEDS: FOLATE 1 MG PO SCH (09:57)
[2022-03-27] MEDS: ELIQUIS 2.5 MG TABLET PO SCH (09:58)
[2022-03-27] MEDS: ROCEPHIN 1 Gm-D5w 50 ml Bag** 1 G/50 ML IVPB IV SCH (09:58)
[2022-03-27] MEDS: SYNTHROID 88 MCG PO SCH (09:58)
[2022-03-27] MEDS: JARDIANCE PO SCH (09:58)
--- NOTE | 2022-03-27 11:08 | PCM.DCORD ---
- Discharge Disposition: HOME HEALTH SERVICE Condition: Stable Prescriptions: New Methylprednisolone Packet [Medrol Dosepack] 1 mg PO DAILY #1 packet Benzonatate 100 mg PO TID PRN #50 cap PRN Reason: Cough Levofloxacin [Levofloxacin 500 MG Tablet] 500 mg PO DAILY #5 tablet Continue Apixaban [Eliquis] 5 mg PO BID No Action carvediloL [Carvedilol] 25 mg PO BID Folic Acid 1 mg [Folate 1 mg] 1 mg PO BID Nitroglycerin 0.4 mg SL UD Levothyroxine Sodium [Euthyrox] 1 tab PO DAILY Furosemide [Lasix] 1 tab PO DAILY ALPRAZolam [Alprazolam] 1 tab PO DAILY Empagliflozin [Jardiance] 1 tab PO DAILY Follow up with: TIA GUTIERREZ MD [Family Provider] - JESSIE ROBBINS DO [Primary Care Provider] - Forms: CHF Discharge Instructions
[2022-03-27] MEDS ORDERED: Tessalon Perles 100 MG PO ONE (11:21)
[2022-03-27] MEDS: Zithromax 500 MG/ 250 ML NaCl Premix 500 MG/250 ML IVPB IV SCH (11:50)
--- NOTE | 2022-03-27 12:06 | PCM.DS ---
Discharge Summary Date of Admission: 03/25/22 10:57 Date of Discharge: 03/27/22 Admitting Physician: YISSEL SINGH Primary Care Provider: JESSIE ROBBINS DO Allergies Allergies rosuvastatin calcium [From Crestor] Allergy (Verified 03/24/22 20:05) legs weak, couldn't ambulate Hospital Summary - Hospital Course Hospital Course: Patient was admitted to [facility] from ER with CHF exacerbation and possible pneumonia. Improved on IV Lasix,Solumedrol,Zithromax and Rocephin. Diuresed with IV Lasix and no longer short of breath or febrile. Appetite good and asking each day to go home. Discharged home with Home Health to wifes care on Levaquin and Tessalon perles and medrol dose emory plus home meds to follow with Dr Hughes [employer] and PCP. - Vitals & Intake/Output Vital Signs: Vital Signs Temperature 98.4 F 03/27/22 07:25 Pulse Rate 77 03/27/22 07:25 Respiratory Rate 14 03/27/22 07:25 Blood Pressure 143/71 03/27/22 07:25 O2 Sat by Pulse Oximetry 95 03/27/22 07:25 Intake & Output: Intake & Output 03/24/22 03/25/22 03/26/22 03/27/22 11:59 11:59 11:59 11:59 Intake Total 600 710 780 Output Total 500 1375 250 Balance 100 -665 530 Weight 65.9 kg 63.6 kg - Lab Result Diagrams: 03/26/22 14:02 03/26/22 14:02 Lab Results-Last 24 Hrs: Lab Results-Last 24 Hours 03/26/22 03/26/22 03/26/22 Range/Units 14:02 14:02 14:02 WBC 14.0 H (4.0-10.5) x10^3/uL RBC 4.01 L (4.1-5.6) x10^6/uL Hgb 13.0 (12.5-18.0) g/dL Hct 40.5 L (42-50) % MCV 101.0 H (78-100) fL MCH 32.4 H (26-32) pg MCHC 32.1 (32-36) g/dL RDW 14.2 H (11.5-14.0) % Plt Count 221 (150-450) x10^3/uL MPV 10.2 (7.5-11.0) fL Gran % 96.3 H (36.0-66.0) % Immature Gran % (Auto) 0.5 H (0.00-0.4) % Nucleat RBC Rel Count 0.0 (0.00-0.1) % Eos # (Auto) 0 (0-0.5) x10^3/uL Immature Gran # (Auto) 0.07 H (0.00-0.03) x10^3u/L Absolute Lymphs (auto) 0.21 L (1.0-4.6) x10^3/uL Absolute Monos (auto) 0.22 (0.0-1.3) x10^3/uL Absolute Nucleated RBC 0.00 (0.00-0.01) x10^3u/L Lymphocytes % 1.5 L (24.0-44.0) % Monocytes % 1.6 (0.0-12.0) % Eosinophils % 0.0 (0.00-5.0) % Basophils % 0.1 (0.0-0.4) % Absolute Granulocytes 13.48 H (1.4-6.9) x10^3/uL Basophils # 0.01 (0-0.4) x10^3/uL Sodium 141 (137-145) mmol/L Potassium 3.5 (3.5-5.1) mmol/L Chloride 98 (98-107) mmol/L Carbon Dioxide 33 H (22-30) mmol/L Anion Gap 13.3 (5-15) MEQ/L BUN 44 H (9-20) mg/dL Creatinine 1.35 H (0.66-1.25) mg/dL Estimated GFR 53.0 ML/MIN Glucose 159 H (74-106) mg/dL POC Glucometer (74 to 106) mg/dL Calcium 8.8 (8.4-10.2) mg/dL NT-Pro-B Natriuret Pep 50930 H (0-1800) pg/mL 03/26/22 03/26/22 03/27/22 Range/Units 16:34 21:55 07:05 WBC (4.0-10.5) x10^3/uL RBC (4.1-5.6) x10^6/uL Hgb (12.5-18.0) g/dL Hct (42-50) % MCV (78-100) fL MCH (26-32) pg MCHC (32-36) g/dL RDW (11.5-14.0) % Plt Count (150-450) x10^3/uL MPV (7.5-11.0) fL Gran % (36.0-66.0) % Immature Gran % (Auto) (0.00-0.4) % Nucleat RBC Rel Count (0.00-0.1) % Eos # (Auto) (0-0.5) x10^3/uL Immature Gran # (Auto) (0.00-0.03) x10^3u/L Absolute Lymphs (auto) (1.0-4.6) x10^3/uL Absolute Monos (auto) (0.0-1.3) x10^3/uL Absolute Nucleated RBC (0.00-0.01) x10^3u/L Lymphocytes % (24.0-44.0) % Monocytes % (0.0-12.0) % Eosinophils % (0.00-5.0) % Basophils % (0.0-0.4) % Absolute Granulocytes (1.4-6.9) x10^3/uL Basophils # (0-0.4) x10^3/uL Sodium (137-145) mmol/L Potassium (3.5-5.1) mmol/L Chloride (98-107) mmol/L Carbon Dioxide (22-30) mmol/L Anion Gap (5-15) MEQ/L BUN (9-20) mg/dL Creatinine (0.66-1.25) mg/dL Estimated GFR ML/MIN Glucose (74-106) mg/dL POC Glucometer 131 H 134 H 117 H (74 to 106) mg/dL Calcium (8.4-10.2) mg/dL NT-Pro-B Natriuret Pep (0-1800) pg/mL Micro Results-Entire Visit: Microbiology 03/24/22 16:30 Blood Culture - Preliminary Blood NO GROWTH TO DATE 03/24/22 16:00 Blood Culture - Preliminary Blood NO GROWTH TO DATE Accuchecks Date 03/27/22 Date 03/26/22 Time 07:24 Time 16:45 - Procedures and Test Procedures and Tests throughout Hospitalization: Therapy Orders & Screens 03/24/22 19:47 Oxygen Nasal Cannula 2 lpm Comment: 03/25/22 10:00 RT Screen per Nursing Assess ONCE Comment: Protocol Order Physician Instructions: Greater than 3 points order RT Admission Screen Reason For Exam: Triggered on Admission Diagnosis: Acute CHF exacerbation Diagnosis: Acute CHF exacerbation Pneumonia: No Home O2: No Asthma: No CHF: Yes Home CPAP/BIPAP: No Home Nebs/MDI: Yes Total Points: 8 Final Diagnosis/Problem List - Final Discharge Diagnosis/Problem (1) CHF exacerbation Current Visit: Yes Status: Acute Code(s): I50.9 - HEART FAILURE, UNSPECIFIED (2) Pneumonia Current Visit: Yes Status: Suspected Code(s): J18.9 - PNEUMONIA, UNSPECIFIED ORGANISM - Discharge Disposition: Home, Self-Care Condition: Stable Prescriptions: New Methylprednisolone Packet [Medrol Dosepack] 1 mg PO DAILY #1 packet Benzonatate 100 mg PO TID PRN #50 cap PRN Reason: Cough Levofloxacin [Levofloxacin 500 MG Tablet] 500 mg PO DAILY #5 tablet Continue Apixaban [Eliquis] 5 mg PO BID No Action carvediloL [Carvedilol] 25 mg PO BID Folic Acid 1 mg [Folate 1 mg] 1 mg PO BID Nitroglycerin 0.4 mg SL UD Levothyroxine Sodium [Euthyrox] 1 tab PO DAILY Furosemide [Lasix] 1 tab PO DAILY ALPRAZolam [Alprazolam] 1 tab PO DAILY Empagliflozin [Jardiance] 1 tab PO DAILY Follow up with: TIA HUGHES MD [Family Provider] - JESSIE ROBBINS DO [Primary Care Provider] - Forms: CHF Discharge Instructions
== END 2022-03-27 13:00 | disposition home health service (06) | DRG 291 ==
LOC: ED 15:32 → MED SURG 19:46 → OBSVTOIN 03-25 10:57
PROVIDERS: ADMIT Family Medicine; ATTEND Family Medicine
DX: I11.0 Hypertensive heart disease with heart failure (principal); J18.9 Pneumonia, unspecified organism; I48.20 Chronic atrial fibrillation, unspecified; I50.9 Heart failure, unspecified; F03.90 Unspecified dementia, unspecified severity, without behavioral disturbance, psychotic disturbance, mood disturbance, and anxiety; E16.2 Hypoglycemia, unspecified; R77.8 Other specified abnormalities of plasma proteins; I25.2 Old myocardial infarction; Z79.01 Long term (current) use of anticoagulants; Z79.899 Other long term (current) drug therapy; Z20.828 Contact with and (suspected) exposure to other viral communicable diseases
CPT/HCPCS: 0241U; 36000; 36415; 71045; 80048; 80053; 81015; 82607; 82947; 83036; 83605; 83735; 83880; 84145; 84443; 84484; 85025; 87040; 93005; 93041; 93268; 94640; 94760; 96374; 96375; 99285; G0378; J0456; J0696; J1940; J2930; A9270-GY